=== PATIENT | female | born 1980 | race Caucasian/White ===

== ENCOUNTER 2019-12-06 11:58 | Outpatient (CLI) | payer OTHER, SELFPAY ==
--- NOTE | ~2019-12-06 | XR_ITS ---
XR chest 2V DATE: 12/06/2019 12:13 INDICATION: Cough. Contact with sick parents from [facility] TECHNIQUE: PA and lateral views COMPARISON: None FINDINGS: Normal heart size. No hilar or mediastinal enlargement. No pulmonary infiltrate or consolid ation, pleural effusion or pulmonary vascular congestion or pneumothorax. Minimal thoracic and greater lumbar scoliosis. IMPRESSION: No active cardiopulmonary disease Reviewed, dictated and finalized at location B.
== END 2019-12-06 11:59 | disposition home or self-care (01) ==
PROVIDERS: PCP Family Medicine; Visit Provider Family Medicine
DX: R05 Cough (principal)
CPT/HCPCS: 71046

== ENCOUNTER 2021-05-04 12:27 | Outpatient (CLI) | payer OTHER, SELFPAY ==
[2021-05-04 19:51] LABS: Basophils Percent Auto 0.5 % (0.2-1.2); Eosinophils Absolute Auto 0.1 K/mm3 (0-0.3); Eosinophils Percent Auto 0.9 % (0-4.4); Hematocrit 40.9 % (37.0-47.0); Hemoglobin 13.8 g/dL (12.0-15.0); Immature Granulocyte Absolute 0.02 K/mm3 (0.00-0.031); Immature Granulocyte Percent A 0.3 % (0-0.5); Lymphocytes Percent Auto 39.8 % (18.3-44.2); Mean Corpuscular HGB Conc 33.7 g/dl (32-36); Mean Corpuscular Volume 88.9 fl (80-100); Mean Platelet Volume 9.9 fl (7.4-10.4); Monocytes Absolute Auto 0.4 K/mm3 (0.1-0.6); Monocytes Percent Auto 5.3 % (2.6-8.5); Neutrophils Absolute Auto 4.2 K/mm3 (1.3-6.7); Neutrophils Percent Auto 53.2 % (45.5-73.1); Platelet Count Result 341 k/mm3 (150-375); Red Cell Distribution Width 13.2 % (11.5-14.5); White Blood Count 7.8 K/mm3 (4.5-10.0)
[2021-05-04 19:58] LABS: Add Urine Microscopic? YES; Appearance Urine Clear (Clear); Bilirubin Urine Negative (Negative); Blood Urine Negative (Negative); Color Urine Straw (Yellow); Glucose Urine UA Negative (Negative); Ketones Urine Negative (Negative); Leukocyte Esterase Ur Trace LEU/UL (Negative); Nitrate Urine Negative (Negative); Protein Urine Negative (Negative); RBC Urine 0-2 /hpf (0-2); Specific Grav Ur 1.006 (1.001-1.035); Squamous Epithelial Cell Urine Rare /hpf (Few); Urobilinogen Urine Negative mg/dL (<2.0); WBC Urine 0-3 /hpf
[2021-05-04 20:31] LABS: Alanine Aminotransferase 22 U/L (4-35); Albumin Level 4.7 g/dL (3.5-5.1); Alkaline Phosphatase 88 U/L (38-126); Anion Gap 6 mmol/L (8-16); Aspartate Amino Transferase 21 U/L (14-36); Bilirubin,Total 0.7 mg/dL (0.2-1.3); Blood Urea Nitrogen 10 mg/dL (7-17); Calcium 9.8 mg/dL (8.4-10.2); Carbon Dioxide 27 mmol/L (22-30); Chloride 106 mmol/L (98-107); Cholesterol 231 mg/dL (0-200); Estimated Glomerular Filt Rate > 60; Glucose 93 mg/dL (65-110); HDL Direct 81 mg/dL; Potassium 3.7 mmol/L (3.4-5.0); Sodium 139 mmol/L (137-145); Triglycerides 98 mg/dL (<150)
[2021-05-04 20:38] LABS: Vitamin D 25 Hydroxy 48.4 ng/mL
[2021-05-04 20:42] LABS: LDL Cholesterol Direct 105 mg/dL
[2021-05-04 21:02] LABS: Thyroid Stimulating Hormone 0.605 uIU/mL (0.465-4.680)
[2021-05-04 21:36] LABS: Folic Acid 9.3 ng/mL (2.76->20)
== END 2021-05-04 12:28 | disposition home or self-care (01) ==
LOC: ANHBWCLAB 12:29
PROVIDERS: PCP Family Medicine; Visit Provider Family Medicine
DX: Z00.00 Encounter for general adult medical examination without abnormal findings (principal); G43.909 Migraine, unspecified, not intractable, without status migrainosus; Z79.899 Other long term (current) drug therapy; R79.89 Other specified abnormal findings of blood chemistry; Z13.9 Encounter for screening, unspecified
CPT/HCPCS: 36415; 80053; 80061; 81001; 82306; 82607; 82746; 84443; 85025

== ENCOUNTER 2021-10-12 10:13 | Outpatient (CLI) | payer OTHER, SELFPAY ==
[2021-10-12 20:14] LABS: Hematocrit 40.2 % (37.0-47.0); Hemoglobin 13.5 g/dL (12.0-15.0); Mean Corpuscular HGB Conc 33.6 g/dl (32-36); Mean Corpuscular Hemoglobin 30.5 pg (26-34); Mean Corpuscular Volume 90.7 fl (80-100); Mean Platelet Volume 9.4 fl (7.4-10.4); Platelet Count Result 402 k/mm3 (150-375); Red Blood Count 4.43 M/mm3 (4.2-5.4); Red Cell Distribution Width 12.5 % (11.5-14.5); White Blood Count 6.9 K/mm3 (4.5-10.0)
[2021-10-12 20:58] LABS: Thyroid Stimulating Hormone 0.719 uIU/mL (0.465-4.680)
[2021-10-12 22:19] LABS: Free T4 Free Thyroxine 0.91 ng/mL (0.78-2.19); Vitamin D 25 Hydroxy 35.2 ng/mL
== END 2021-10-12 10:14 | disposition home or self-care (01) ==
LOC: ANHBWCLAB 10:16
PROVIDERS: PCP Family Medicine; Visit Provider Nurse Practitioner
DX: R53.83 Other fatigue (principal); E55.9 Vitamin D deficiency, unspecified
CPT/HCPCS: 36415; 82306; 82607; 84439; 84443; 85027

== ENCOUNTER 2021-11-09 14:03 | Outpatient (CLI) | payer OTHER, SELFPAY ==
[2021-11-09 20:07] LABS: Hematocrit 39.2 % (37.0-47.0); Hemoglobin 13.3 g/dL (12.0-15.0); Mean Corpuscular HGB Conc 33.9 g/dl (32-36); Mean Corpuscular Hemoglobin 30.2 pg (26-34); Mean Corpuscular Volume 89.1 fl (80-100); Mean Platelet Volume 9.8 fl (7.4-10.4); Platelet Count Result 307 k/mm3 (150-375); Red Cell Distribution Width 13.2 % (11.5-14.5); White Blood Count 6.3 K/mm3 (4.5-10.0)
== END 2021-11-09 14:04 | disposition home or self-care (01) ==
LOC: ANHBWCLAB 14:05
PROVIDERS: PCP Family Medicine; Visit Provider Obstetrics & Gynecology Gynecology
DX: R79.9 Abnormal finding of blood chemistry, unspecified (principal)
CPT/HCPCS: 36415; 85027

== ENCOUNTER 2022-04-27 15:37 | Outpatient (CLI) | payer OTHER, SELFPAY ==
--- NOTE | ~2022-04-27 | US_ITS ---
EXAMINATION: US OB <=14 wk fetus w TV INDICATION: SPOTTING IN FIRST TRIMESTER . LMP 02/27/2022. IGNACIO by LMP 12/04/2022. GA by LMP 8 weeks 3 da ys. TECHNIQUE: Sonography of the pelvis was performed by transabdominal and transvaginal techniques. COMPARISON: 06/13/2009 RESULT: Uterus: - Orientation: Anteverted - Size: 9.9 x 5.5 x 6.2 cm - Myometrium: Homogeneous echogenicity . Gestation: - Intrauterine gestational sac: Single present - Mean Sac Diameter: cm, corresponding gestational age week days - Yolk sac: cm - Embryo: - Alvarado rump length: 1.1 cm, corresponding gestational age 7 weeks, 1 days. IGNACIO by ultrasound 12/13/2022. -Gestational heart rate: Absent. -Subgestational hematoma: Absent. Right ovary: - Size : Not visualized. Left ovary: - Size: 2.9 x 2.5 x 2.6 cm - Normal sonographic appearance with physiologic follicles. 2.3 cm simple cyst. Pelvis free fluid: None. IMPRESSION: Ultrasound findings of failure (CRL greater than 7 mm with no heart motion). Reviewed, dictated and finalized at location K. IMPRESSION: Ultrasound findings of failure (CRL greater than 7 mm with no h eart motion).
== END 2022-04-27 15:38 | disposition home or self-care (01) ==
PROVIDERS: PCP Family Medicine; Visit Provider Obstetrics & Gynecology Gynecology
DX: O26.851 Spotting complicating pregnancy, first trimester (principal); O02.1 Missed abortion
CPT/HCPCS: 76801; 76817

== ENCOUNTER 2022-04-30 10:57 | Outpatient (CLI) | payer OTHER, SELFPAY | END 2022-04-30 10:58 | disposition home or self-care (01) | LOC: ANHBWCLAB 10:59 | PROVIDERS: PCP Family Medicine; Visit Provider Obstetrics & Gynecology Gynecology | DX: O03.9 Complete or unspecified spontaneous abortion without complication (principal) | CPT/HCPCS: 36415; 84702 ==

== ENCOUNTER 2022-05-04 13:06 | Outpatient (CLI) | payer OTHER, SELFPAY ==
--- NOTE | ~2022-05-04 | US_ITS ---
EXAMINATION: US OB <= 14 weeks fetus DATE: 05/04/2022 14:01 INDICATION: Threatened , less than 20 weeks TECHNIQUE: Real-time pelvic transabdominal and transvaginal ultrasound was performed. COMPARISON: 04/27/2022 FINDINGS: The uterus measures 10.4 x 5.3 x 7.0 cm. There is an intrauterine gestational sac. No yolk sac is identified. There is noted cardiac motion. The crown rump length measures 11 mm, which correlates with an estimated gestational age of 7 weeks and 2 day(s) (+/-) 4 day(s). The ovaries are not visualized however no adnexal abnormality is seen. There is no free fluid in the pelvis. IMPRESSION: 1. demise. Reviewed, dictated and finalized at location A. IMPRESSION: 1. demise.
== END 2022-05-04 13:07 | disposition home or self-care (01) ==
PROVIDERS: PCP Family Medicine; Visit Provider Obstetrics & Gynecology Gynecology
DX: O02.1 Missed abortion (principal)
CPT/HCPCS: 76801

== ENCOUNTER 2022-05-07 10:10 | Outpatient (CLI) | payer OTHER, SELFPAY | END 2022-05-07 10:11 | disposition home or self-care (01) | LOC: ANHBWCLAB 10:12 | PROVIDERS: PCP Family Medicine; Visit Provider Obstetrics & Gynecology Gynecology | DX: O03.9 Complete or unspecified spontaneous abortion without complication (principal) | CPT/HCPCS: 36415; 84702 ==

== ENCOUNTER 2022-05-14 08:41 | Outpatient (CLI) | payer OTHER, SELFPAY | END 2022-05-14 08:42 | disposition home or self-care (01) | LOC: ANHBWCLAB 08:43 | PROVIDERS: PCP Family Medicine; Visit Provider Obstetrics & Gynecology Gynecology | DX: O03.9 Complete or unspecified spontaneous abortion without complication (principal); Z3A.00 Weeks of gestation of pregnancy not specified | CPT/HCPCS: 36415; 84702 ==

== ENCOUNTER 2022-05-20 08:47 | Outpatient (CLI) | payer OTHER, SELFPAY ==
[2022-05-20 19:47] LABS: Beta HCG Quantitative 25.14 mIU/ML
== END 2022-05-20 08:48 | disposition home or self-care (01) ==
PROVIDERS: PCP Family Medicine; Visit Provider Obstetrics & Gynecology Gynecology
DX: O03.9 Complete or unspecified spontaneous abortion without complication (principal)
CPT/HCPCS: 36415; 84702

== ENCOUNTER 2022-05-28 13:30 | Outpatient (CLI) | payer OTHER, SELFPAY ==
[2022-05-28 18:56] LABS: Beta HCG Quantitative 4.76 mIU/ML
== END 2022-05-28 13:31 | disposition home or self-care (01) ==
PROVIDERS: PCP Family Medicine; Visit Provider Obstetrics & Gynecology Gynecology
DX: O03.9 Complete or unspecified spontaneous abortion without complication (principal); Z3A.00 Weeks of gestation of pregnancy not specified
CPT/HCPCS: 36415; 84702

== ENCOUNTER 2022-09-27 10:00 | Outpatient (CLI) | payer OTHER, SELFPAY ==
[2022-09-27 21:31] LABS: Alanine Aminotransferase 23 U/L (6-35); Albumin Level 4.8 g/dL (3.5-5.1); Alkaline Phosphatase 82 U/L (38-126); Anion Gap 6 mmol/L (8-16); Aspartate Amino Transferase 31 U/L (14-36); Bilirubin,Total 0.7 mg/dL (0.2-1.3); Blood Urea Nitrogen 13 mg/dL (7-17); Calcium 9.1 mg/dL (8.4-10.2); Carbon Dioxide 28 mmol/L (22-30); Chloride 103 mmol/L (98-107); Cholesterol 237 mg/dL (0-200); Estimated Glomerular Filt Rate > 60; Glucose 78 mg/dL (65-110); HDL Direct 69 mg/dL; Hematocrit 40.6 % (37.0-47.0); Hemoglobin 13.3 g/dL (12.0-15.0); Mean Corpuscular HGB Conc 32.8 g/dl (32-36); Mean Corpuscular Hemoglobin 29.4 pg (26-34); Mean Corpuscular Volume 89.6 fl (80-100); Mean Platelet Volume 9.9 fl (7.4-10.4); Platelet Count Result 346 k/mm3 (150-375); Potassium 3.9 mmol/L (3.4-5.0); Red Blood Count 4.53 M/mm3 (4.2-5.4); Red Cell Distribution Width 13.4 % (11.5-14.5); Sodium 137 mmol/L (137-145); Triglycerides 88 mg/dL (<150); White Blood Count 6.3 K/mm3 (4.5-10.0)
[2022-09-27 21:39] LABS: Vitamin D 25 Hydroxy 36.6 ng/mL
[2022-09-27 21:42] LABS: LDL Cholesterol Direct 104 mg/dL
== END 2022-09-27 10:01 | disposition home or self-care (01) ==
PROVIDERS: PCP Family Medicine; Visit Provider Family Medicine
DX: R79.89 Other specified abnormal findings of blood chemistry (principal); G43.909 Migraine, unspecified, not intractable, without status migrainosus; Z00.00 Encounter for general adult medical examination without abnormal findings
CPT/HCPCS: 36415; 80053; 80061; 82306; 85027

== ENCOUNTER 2023-09-08 16:01 | Outpatient (CLI) | payer OTHER, SELFPAY ==
--- NOTE | ~2023-09-08 | MM_ITS ---
EXAMINATION: MM screening aisha BI w glo HISTORY: Screening mammogram TECHNIQUE: Craniocaudal and mediolateral oblique 3-D tomosynthesis images were obtained and synthetic 2-D images were generated. Bilateral rotated lateral CC views. CAD analysis was submitted and interp reted. COMPARISON: No prior mammogram is available for comparison at this institution. BREAST PARENCHYMAL COMPOSITION: The breasts are heterogeneously dense, which may obscure small masses . FINDINGS: There is no evidence of suspicious mass, calcification, or architectural distortion to sugg est malignancy in either breast. There has been no suspicious interval change. IMPRESSION: 1. No mammographic evidence of malignancy. 2. Recommend routine screening mammography in one year. BI-RADS Category 1: Negative Reviewed, dictated and finalized at location A. N SALES REPRESENTATIVE
== END 2023-09-08 16:02 | disposition home or self-care (01) ==
PROVIDERS: PCP Family Medicine; Visit Provider Obstetrics & Gynecology Gynecology
DX: Z12.31 Encounter for screening mammogram for malignant neoplasm of breast (principal)
CPT/HCPCS: 77063; 77067

== ENCOUNTER 2023-10-17 06:40 | Outpatient (CLI) | payer OTHER, SELFPAY ==
[2023-10-17 19:01] LABS: Alanine Aminotransferase 17 U/L (6-35); Albumin Level 3.8 g/dL (3.5-5.1); Alkaline Phosphatase 67 U/L (38-126); Anion Gap 5 mmol/L (8-16); Aspartate Amino Transferase 58 U/L (14-36); Bilirubin,Total 0.5 mg/dL (0.2-1.3); Blood Urea Nitrogen 11 mg/dL (7-17); Calcium 9.2 mg/dL (8.4-10.2); Carbon Dioxide 25 mmol/L (22-30); Chloride 106 mmol/L (98-107); Cholesterol 212 mg/dL (0-200); Estimated Glomerular Filt Rate > 60; Glucose 78 mg/dL (65-110); HDL Direct 60 mg/dL; Potassium 4.1 mmol/L (3.4-5.0); Sodium 136 mmol/L (137-145); Triglycerides 123 mg/dL (<150)
[2023-10-17 19:26] LABS: LDL Cholesterol Direct 118 mg/dL
[2023-10-17 19:33] LABS: Hematocrit 39.6 % (37.0-47.0); Hemoglobin 12.7 g/dL (12.0-15.0); Mean Corpuscular HGB Conc 32.1 g/dl (32-36); Mean Corpuscular Hemoglobin 30.1 pg (26-34); Mean Corpuscular Volume 93.8 fl (80-100); Mean Platelet Volume 9.9 fl (7.4-10.4); Platelet Count Result 340 k/mm3 (150-375); Red Blood Count 4.22 M/mm3 (4.2-5.4); Red Cell Distribution Width 13.3 % (11.5-14.5); White Blood Count 7.2 K/mm3 (4.5-10.0)
[2023-10-19 12:28] LABS: NIL 0.02 IU/mL; Quantiferon TB Plus, 1T NEGATIVE (NEGATIVE); TB1-NIL 0.02 IU/mL; TB2-NIL 0.04 IU/mL
== END 2023-10-17 06:41 | disposition home or self-care (01) ==
LOC: ANHBWCLAB 06:46
PROVIDERS: PCP Nurse Practitioner Adult Health; Visit Provider Nurse Practitioner Adult Health
DX: Z13.9 Encounter for screening, unspecified (principal)
CPT/HCPCS: 36415; 80053; 80061; 82306; 84443; 85027; 86480

== ENCOUNTER 2023-10-31 21:31 | Emergency (ER) | payer OTHER, SELFPAY ==
--- NOTE | 2023-10-31 21:34 | ECG_ITS ---
Measurements Intervals [place] Rate: 60 P: 40 GA: 187 QRS: 53 QRSD: 83 T: 48 QT: 373 QTc: 374 Interpretive Statements SINUS RHYTHM NO PREVIOUS ECG AVAILABLE FOR COMPARISON Electronically Signed On 11-01-2023 14:58:35 [employer] by Jose Edwards M.D.
[2023-10-31 21:41] VITALS: BP 148/73; PULSE 70; RESP 16; TEMP 36.5; O2SAT 100
--- NOTE | 2023-10-31 22:37 | PC.NURSE ---
Pt ambulated to desk and stated she was going to leave ED. Pt was encouraged to stay and be seen by a physician by this RN. Pt states she understood the risks of leaving and ambulated out of the ED.
== END 2023-10-31 22:26 | disposition left against medical advice (07) ==
PROVIDERS: Emergency Provider Emergency Medicine; PCP Nurse Practitioner Adult Health
DX: M79.602 Pain in left arm (principal)
CPT/HCPCS: 93005; 99199

== ENCOUNTER 2024-03-09 05:24 | Emergency (ER) | payer OTHER, SELFPAY ==
[2024-03-09 05:50] VITALS: BP 114/77; PULSE 67; RESP 18; TEMP 36.4; O2SAT 100
[2024-03-09] MEDS: PROCHLORPERAZINE EDISYLATE 10 MG/2 ML VIAL 5 MG IV PUSH (06:07)
[2024-03-09] MEDS: SODIUM CHLORIDE 0.9% IV 500 ML 999 ML IV CONT (06:07)
[2024-03-09] MEDS: KETOROLAC 30 MG/ML VIAL (*BKC) IV PUSH (06:08)
[2024-03-09] MEDS: diphenhydrAMINE HCl INJ 50 MG/ML VIAL 25 MG IV PUSH (06:08)
--- NOTE | 2024-03-09 06:49 | ED.HA ---
HPI - Headache General Chief Complaint: Headache Stated Complaint: headache Time Seen by Provider: 03/09/24 05:43 Source: patient Mode of arrival: ambulatory Limitations: no limitations History of Present Illness HPI Narrative: 43-year-old with a history of migraine headache here with a complaint of having. Headache since this morning it has been states that she has taken UT pain medication with no relief. She also complains of nausea. No history of fever or chills. MD elicited complaint: migraine Pertinent past history: other (Recurrent migraine) Onset (ago): hour(s) (4) Onset description: gradually Location: right Severity: similar to previous episodes Quality & Timing: aching and throbbing Exacerbating factors: none Relieving factors: nothing Context: occurred at rest Associated symptoms: nausea Treatments prior to arrival: migraine medication Related Data Home Medications Medication Instructions Recorded Confirmed sumatriptan succinate 100 mg tablet See Rx Instructions PO .COMPLEX PRN 09/21/23 09/21/23 Allergies Allergy/AdvReac Type Severity Reaction Status Date / Time codeine Allergy Mild Dizziness Verified 03/09/24 05:53 Review of Systems Review of Systems: All systems reviewed & are unremarkable except as noted in HPI and below Constitutional: Constitutional: Reports no additional constitutional complaints Eyes: Eyes: Reports no additional eye complaints ENT: Reports system reviewed and no additional complaints, except as documented Respiratory: Respiratory: Reports no additional respiratory complaints Gastrointestinal: Gastrointestinal: Reports nausea Musculoskeletal: Musculoskeletal: Reports no additional musculoskeletal complaints Integumentary/Breasts: Skin/Breast: Reports system reviewed and no additional complaints, except as docu Neurologic: Reports as per HPI Endocrine: Endocrine: Reports no additional endocrine complaints [facility] Past Medical History Medical History (Updated 03/09/24 @ 06:53 by Vaughn Cary MD) Headache, migraine Low serum vitamin D Family History Family History Mother COPD (chronic obstructive pulmonary disease) Rheumatoid aortitis Father Cancer of kidney Grandparent Heart attack Emphysema, unspecified Sibling Migraine Social History Social History Smoking status: Never smoker Alcohol intake: never Substance use: never Substance use type: does not use Lack of Transportation: No Lack of Food: Never True Current Housing: I Have Housing Concerned About Future Housing: No Difficulty Paying Gas/Electric Bills: No Difficulty Paying for Meds: No Currently Unemployed: No Education: High School Diploma/GED Difficulty w/ Childcare or Family Care: No Living arrangements: with family Gender identity (if verbalized by the patient): Female Spiritual care concerns: No Exam Narrative: GENERAL: Well-appearing, well-nourished, and in no acute distress. HEAD: Normocephalic, atraumatic. EYES: PERRLA and EOMI. ENT: Nares clear, no rhinorrhea or epistaxis. Mucous membranes moist. NECK: Supple. CHEST: Clear to auscultation. No respiratory distress. HEART: Regular rate and rhythm. No murmur heard. Normal peripheral pulses. ABDOMEN: Soft, nontender, nondistended, normal active bowel sounds. EXTREMITIES: Normal range of motion. No edema. SKIN: Warm, dry, no rash. NEURO: No focal deficits. Alert and oriented x3. PSYCH: Normal mood and affect. Course Reevaluation(s) Reevaluation #1: Patient feeling better headache resolved. Feeling sleepy at this time Time: 06:52 Reevaluation #2: Feeling better feels comfortable going home. I advised her to continue home medications Time: 07:04 Vital Signs Vital signs: Vital Signs Temperature 36.4 C 03/09/24 05:50 Pulse Rate 67
[2024-03-09 06:55] VITALS: BP 102/79; PULSE 57; RESP 13; O2SAT 100
[2024-03-09 07:13] VITALS: BP 107/72; PULSE 75; RESP 15; TEMP 36.4; O2SAT 98
== END 2024-03-09 07:14 | disposition home or self-care (01) ==
PROVIDERS: Emergency Provider Family Medicine; PCP Nurse Practitioner Adult Health
DX: G43.919 Migraine, unspecified, intractable, without status migrainosus (principal); Z79.899 Other long term (current) drug therapy
CPT/HCPCS: 96361; 96374; 96375; 99284; J0780; J1200; J1885; J7040

== ENCOUNTER 2024-09-26 08:32 | Outpatient (CLI) | payer OTHER, SELFPAY ==
[2024-09-26 19:18] LABS: Hematocrit 45.4 % (37.0-47.0); Hemoglobin 14.4 g/dL (12.0-15.0); Mean Corpuscular HGB Conc 31.7 g/dl (32-36); Mean Corpuscular Hemoglobin 29.8 pg (26-34); Mean Platelet Volume 9.8 fl (7.4-10.4); Platelet Count Result 365 k/mm3 (150-375); Red Blood Count 4.83 M/mm3 (4.2-5.4); Red Cell Distribution Width 12.9 % (11.5-14.5)
[2024-09-26 20:02] LABS: Free T4 Free Thyroxine 0.94 ng/dL (0.78-2.19)
[2024-09-26 20:31] LABS: Alanine Aminotransferase 31 U/L (6-35); Albumin Level 4.5 g/dL (3.5-5.1); Alkaline Phosphatase 73 U/L (38-126); Anion Gap 5 mmol/L (4-12); Aspartate Amino Transferase 36 U/L (14-36); Bilirubin,Total 0.9 mg/dL (0.2-1.3); Blood Urea Nitrogen 13 mg/dL (7-17); Calcium 9.5 mg/dL (8.4-10.2); Carbon Dioxide 29 mmol/L (22-30); Chloride 102 mmol/L (98-107); Cholesterol 276 mg/dL (0-200); Estimated Glomerular Filt Rate > 60; Glucose 80 mg/dL (65-110); HDL Direct 84 mg/dL; Potassium 4.5 mmol/L (3.4-5.0); Sodium 136 mmol/L (137-145); Triglycerides 108 mg/dL (<150)
[2024-09-26 20:43] LABS: LDL Cholesterol Direct 151 mg/dL
[2024-09-26 21:35] LABS: Folic Acid > 20.0 ng/mL (2.76->20)
[2024-09-28 08:58] LABS: Thyroid Peroxidase Antibodies 11 IU/mL (<9)
== END 2024-09-26 08:33 | disposition home or self-care (01) ==
LOC: ANHBWCLAB 08:33
PROVIDERS: PCP Nurse Practitioner Adult Health; Visit Provider Nurse Practitioner Adult Health
DX: R53.83 Other fatigue (principal); Z13.9 Encounter for screening, unspecified
CPT/HCPCS: 36415; 80053; 80061; 82306; 82607; 82746; 84439; 84443; 85027; 86376

== ENCOUNTER 2024-11-01 07:20 | Outpatient (CLI) | payer OTHER, SELFPAY ==
--- NOTE | ~2024-11-01 | MM_ITS ---
EXAMINATION: MM screening aisha BI w glo HISTORY: Screening TECHNIQUE: Craniocaudal and mediolateral oblique 3-D tomosynthesis images were obtained and synthetic 2-D images were generated. CAD analysis was submitted and interpreted. COMPARISON: 09/08/2023 BREAST PARENCHYMAL COMPOSITION: Dense: The breasts are extremely dense, which lowers the sensitivity of mammography. FINDINGS: There is no evidence of suspicious mass, calcification, or architectural distortion to sugg est malignancy in either breast. There has been no suspicious interval change. IMPRESSION: 1. No mammographic evidence of malignancy. 2. Recommend routine screening mammography in one year. BI-RADS Category 1: Negative Reviewed, dictated and finalized at location B. TARIAN INSPECTOR
== END 2024-11-01 07:21 | disposition home or self-care (01) ==
PROVIDERS: PCP Nurse Practitioner Adult Health; Visit Provider Obstetrics & Gynecology Gynecology
DX: Z12.31 Encounter for screening mammogram for malignant neoplasm of breast (principal)
CPT/HCPCS: 77063; 77067

== ENCOUNTER 2025-03-09 17:37 | Observation (INO) | payer OTHER, SELFPAY ==
--- NOTE | ~2025-03-09 | CT_ITS ---
Procedure: CT LE LT w con Ordering provider: Preethi Teague PA-C History: . cellulitis, spider bite . Comparison: None. Technique: Thin slice axial CT of the No IV contrast was given. Sagittal and coronal reformatted imag es were also obtained and reviewed. Findings: BONES: No bone abnormality demonstrated with no fracture or osteomyelitis.. JOINT SPACES: Normal. SOFT TISSUES: Fat stranding is seen anteriorly in the upper thigh with soft tissue density which mickey ure 1.2 cm. Fat stranding also seen posteriorly and medially in the lower thigh. These changes may represent cellulitis. No evidence of abscess formation seen. No evidence of inguina l lymphadenopathy is seen. IMPRESSION: No definite bone abnormality seen. Highly suggestive cellulitis seen anteriorly in the upper thigh and posteriorly and medially in the l ower thigh. Reviewed, dictated and finalized at location A. IMPRESSION: No definite bone abnormality seen. Highly suggestive cellulitis seen anteriorly in the upper thigh and posteriorly and medially in the lower thigh.
[2025-03-09 17:39] VITALS: BP 152/86; PULSE 99; RESP 18; TEMP 36.6; O2SAT 100
--- NOTE | 2025-03-09 18:52 | ED_ITS ---
HPI - Skin/Abscess/Foreign Bdy General Chief complaint: Skin/Abscess/Foreign Body Stated complaint: spider bite Time Seen by Provider: 03/09/25 18:24 Source: patient Mode of arrival: ambulatory Limitations: no limitations History of Present Illness HPI narrative: This is a 44-year-old female that presents to the emergency department after a spider bite 3 days ago. Reports she was seen at another ER. Started on doxycycline. She has been taking this with continued worsening symptoms. Reports increasing redness. Also reports she has had increasing blistering, purple discoloration. Presents for further evaluation. Denies fevers. Related Data Allergies Allergy/AdvReac Type Severity Reaction Status Date / Time codeine Allergy Mild Dizziness Verified 03/09/25 19:05 morphine AdvReac Intermediate Unconscious Verified 03/09/25 19:05 Review of Systems 2 Review of Systems: All systems reviewed & are unremarkable except as noted in HPI and below PMFSH Past Medical History Medical History (Updated 03/10/25 @ 00:05 by Preethi Teague PA-C) Low serum vitamin D Headache, migraine Family History Family History Mother COPD (chronic obstructive pulmonary disease) Rheumatoid aortitis Father Cancer of kidney Grandparent Heart attack Emphysema, unspecified Sibling Migraine Social History Social History Smoking status: Never smoker Alcohol intake: never Substance use: never Substance use type: does not use Lack of Transportation: No Lack of Food: Never True Current Housing: I Have Housing Concerned About Future Housing: No Difficulty Paying Gas/Electric Bills: No Difficulty Paying for Meds: No Currently Unemployed: No Education: High School Diploma/GED Difficulty w/ Childcare or Family Care: No Living arrangements: with family Gender identity (if verbalized by the patient): Female Spiritual care concerns: No Exam 2 Narrative: GENERAL: Well-appearing, well-nourished, and in no acute distress. HEAD: Normocephalic, atraumatic. EYES: EOMI. CHEST: Clear to auscultation. No respiratory distress. No wheezes rales or rhonchi HEART: Regular rate and rhythm. No murmur heard. Normal peripheral pulses. EXTREMITIES: Normal range of motion. No edema. Large area of redness to the left anterior thigh with central area of purple discoloration with overlying blister. No lymphangitic streaking SKIN: Warm, dry, no rash. NEURO: No focal deficits. Alert and oriented x3. PSYCH: Normal mood and affect Course Course Emergency Course: Patient updated on her workup and recommendation for admission Consultations Consultation #1: Spoke with hospitalist about patient and workup who accepts admission. Date: 03/09/25 Vital Signs Vital signs: Vital Signs Temperature 97.9 F 03/09/25 17:39 Pulse Rate 99 03/09/25 17:39 Respiratory Rate 18 03/09/25 17:39 Blood Pressure 152/86 H 03/09/25 17:39 Pulse Oximetry 100 03/09/25 17:39 Oxygen Delivery Room Air 03/09/25 17:39 Temperature 98.3 F 03/09/25 19:06 Pulse Rate 81 03/09/25 23:29 Respiratory Rate 17 03/09/25 23:29 Blood Pressure 121/77 03/09/25 23:29 Pulse Oximetry 99 03/09/25 23:29 Oxygen Delivery Room Air 03/09/25 19:06 MDM - Skin/Abscess/Foreign Bdy MDM Narrative Medical decision making narrative: Patient presents to the emergency department for worsening cellulitis following a spider bite. She is afebrile nontoxic appearing. Her vitals are stable. Cbc without leukocytosis. CRP is elevated, ESR is normal. CT left lower extremity shows cellulitis, no evidence for abscess. Patient has been on oral doxycycline with continued worsening of her symptoms. Will be admitted for further IV antibiotics. Spoke with hospitalist about patient and workup who accepts admission. Will place consult for General surgery to evaluate wound Differential Diagnosis Differential diagnosis: Likely abscess of skin or subcutaneous tissue and cellulitis Lab Data Attestation: I reviewed the patient's lab results. 03/09/25 19:12 03/09/25 19:12 Labs: Lab Results 03/09/25 03/09/25 Range/Units 19:12 22:08 WBC 6.6 (4.5-10.0) K/mm3 RBC 4.08 L (4.2-5.4) M/mm3 Hgb 12.3 (12.0-15.0) g/dL Hct 36.7 L (37.0-47.0) % MCV 90.0 (80-100) fl MCH 30.1 (26-34) pg MCHC 33.5 (32-36) g/dl RDW 13.1 (11.5-14.5) % Plt Count 307 (150-375) k/mm3 MPV 9.4 (7.4-10.4) fl Immature Gran % (Auto) 0.3 (0-0.5) % Neut % (Auto) 61.9 (45.5-73.1) % Lymph % (Auto) 28.5 (18.3-44.2) % [place] % (Auto) 5.8 (2.6-8.5) % Eos % (Auto) 3.2 (0-4.4) % Baso % (Auto) 0.3 (0.2-1.2) % Lymph # (Auto) 1.87 (0.9-3.2) K/mm3 [place] # (Auto) 0.4 (0.1-0.6) K/mm3 Eos # (Auto) 0.2 (0-0.3) K/mm3 Baso # (Auto) 0.0 (0.0-0.1) K/mm3 Abs Immat Gran (auto) 0.02 (0.00-0.031) K/mm3 Absolute Neuts (auto) 4.1 (1.3-6.7) K/mm3 Absolute Nucleated RBC 0.000 (0.0-0.012) K/mm3 Nucleated RBC % 0.0 (0.0-0.2) % ESR 19 (0-20) mm/hr Sodium 139 (137-145) mmol/L Potassium 3.7 (3.4-5.0) mmol/L Chloride 107 (98-107) mmol/L Carbon Dioxide 24 (22-30) mmol/L Anion Gap 8 (4-12) mmol/L BUN 11 (7-17) mg/dL Creatinine 0.55 L (0.7-1.0) mg/dL Estim Creat Clear Calc 105 ml/min Estimated GFR > 60 (59 - ) Glucose 97 (65-110) mg/dL Lactic Acid 1.0 (0.7-2.0) mmol/L Calcium 9.1 (8.4-10.2) mg/dL Total Bilirubin 0.3 (0.2-1.3) mg/dL AST 33 (14-36) U/L ALT 32 (6-35) U/L Alkaline Phosphatase 80 (38-126) U/L C-Reactive Protein 2.3 H (<1.0) mg/dL Total Protein 7.1 (6.3-8.2) g/dL Albumin 4.0 (3.5-5.1) g/dL POC Urine HCG, Qual Negative (Negative) Imaging Data Radiologist's impression: ITS Impressions Lower Extremity CT 03/09/25 21:33 IMPRESSION: No definite bone abnormality seen. Highly suggestive cellulitis seen anteriorly in the upper thigh and posteriorly and medially in the lower thigh. Critical Care Time Critical Care Time Critical Care Time: No Discharge Plan Discharge Clinical Impression: Cellulitis Qualifiers: Site of cellulitis: extremity Site of cellulitis of extremity: lower extremity Laterality: left Qualified Code(s): L03.116 - Cellulitis of left lower limb Patient Disposition: Still a Patient Condition: Stable Patient Language: American Prescriptions: No Action dextroamphetamine-amphetamine [Adderall XR] 20 mg capsule,extended release 24hr 20 mg PO DAILY Qty: 30 0RF fluoxetine 20 mg capsule 20 mg PO DAILY Qty: 90 3RF Ubrelvy 100 mg tablet See Rx Instructions .ROUTE .COMPLEX Qty: 8 3RF Dose Instruction: TAKE 1 TABLET BY MOUTH 1 TIME NEEDED FOR MIGRAINE HEADACHE. MAY REPEAT 1 TIME IN>= 2 HOURS AFTER FOR 1 DOSE NEEDED Rx Instructions: TAKE 1 TABLET BY MOUTH 1 TIME NEEDED FOR MIGRAINE HEADACHE. MAY REPEAT 1 TIME IN>= 2 HOURS AFTER FOR 1 DOSE NEEDED Follow-up/Referrals: Shae Ruiz APRN [Primary Care Provider] -
[2025-03-09 19:06] VITALS: BP 132/77; PULSE 83; RESP 16; TEMP 36.8; O2SAT 100
--- NOTE | 2025-03-09 19:17 | PC.NURSE ---
Report received from GRACE Castro. Assumed care of patient at this time.
[2025-03-09 19:19] LABS: Basophils Percent Auto 0.3 % (0.2-1.2); Eosinophils Absolute Auto 0.2 K/mm3 (0-0.3); Eosinophils Percent Auto 3.2 % (0-4.4); Hematocrit 36.7 % (37.0-47.0); Hemoglobin 12.3 g/dL (12.0-15.0); Immature Granulocyte Absolute 0.02 K/mm3 (0.00-0.031); Immature Granulocyte Percent A 0.3 % (0-0.5); Lymphocytes Absolute Auto 1.87 K/mm3 (0.9-3.2); Lymphocytes Percent Auto 28.5 % (18.3-44.2); Mean Corpuscular HGB Conc 33.5 g/dl (32-36); Mean Corpuscular Hemoglobin 30.1 pg (26-34); Mean Platelet Volume 9.4 fl (7.4-10.4); Monocytes Absolute Auto 0.4 K/mm3 (0.1-0.6); Monocytes Percent Auto 5.8 % (2.6-8.5); Neutrophils Absolute Auto 4.1 K/mm3 (1.3-6.7); Neutrophils Percent Auto 61.9 % (45.5-73.1); Platelet Count Result 307 k/mm3 (150-375); Red Blood Count 4.08 M/mm3 (4.2-5.4); Red Cell Distribution Width 13.1 % (11.5-14.5); White Blood Count 6.6 K/mm3 (4.5-10.0)
[2025-03-09 19:32] LABS: Alanine Aminotransferase 32 U/L (6-35); Alkaline Phosphatase 80 U/L (38-126); Anion Gap 8 mmol/L (4-12); Aspartate Amino Transferase 33 U/L (14-36); Bilirubin,Total 0.3 mg/dL (0.2-1.3); Blood Urea Nitrogen 11 mg/dL (7-17); CRP 2.3 mg/dL (<1.0); Calcium 9.1 mg/dL (8.4-10.2); Carbon Dioxide 24 mmol/L (22-30); Chloride 107 mmol/L (98-107); Estimated CRCL calculation 105 ml/min; Estimated Glomerular Filt Rate > 60; Glucose 97 mg/dL (65-110); Potassium 3.7 mmol/L (3.4-5.0); Sodium 139 mmol/L (137-145); Total Protein 7.1 g/dL (6.3-8.2)
[2025-03-09 19:58] LABS: Erythrocyte Sedimentation Rate 19 mm/hr (0-20)
[2025-03-09] MEDS: VANCOMYCIN 1,500 MG/NS 500 ML 1,500 MG/500 ML BAG 250 MG IVPB (21:12)
[2025-03-09 22:09] VITALS: BP 128/79; PULSE 83; RESP 18; O2SAT 99
[2025-03-09 22:10] LABS: BEDSIDEPREGUCG Negative (Negative)
--- NOTE | 2025-03-09 22:30 | PC.NURSE ---
Patient calls this RN into room, and states I feel like my head is itchy. Patient denies any sob, or cp. No rash or hives noted. PA notified, and orders placed.
[2025-03-09] MEDS: diphenhydrAMINE HCl INJ 50 MG/ML VIAL 25 MG IV PUSH (22:33)
--- NOTE | 2025-03-09 22:51 | PC.NURSE ---
Patient states her itching has been relieved after benadryl administration. Patient ambulating to the bathroom with a steady gait with her by her side.
[2025-03-09 23:29] VITALS: BP 121/77; PULSE 81; RESP 17; O2SAT 99
[2025-03-10] VITALS (8 sets, daily range): BP systolic 107–135; BP diastolic 67–81; PULSE 69–90; RESP 16–18; TEMP 36.6–37.1; O2SAT 98–100; BMI 30.1
[2025-03-10] MEDS: KETOROLAC 30 MG/ML VIAL (*BKC) IV PUSH (01:58)
--- NOTE | 2025-03-10 07:07 | P.HP_ITS ---
H&P: HPI History of Present Illness Date/Time: 03/10/25 07:07 Chief Complaint: Skin/Abscess/Foreign Body Narrative: Domonique Santos is a 44-year-old female with a past medical history of low serum vitamin-D and headaches presents with swelling and erythema to the medial upper left thigh after a spider bite which occurred on Tuesday of this week. Patient reports that it could have been a brown recluse, she was able to get a picture of the spider after a was stepped on by her son and on examination of the picture, it does appear to be a brown recluse spider. She initially went to [facility] urgent care on Tuesday and was given a prescription for doxycycline. The wound did not improve over the next 2 days in on Tuesday she went back to the same urgent care and was told to continue the antibiotic. On Tuesday she started developing facial swelling along with worsening redness and swelling to the medial upper left thigh. Once seen in the ED, IV Vancomycin was initiated and patient states that knee swelling and pain seemed to have improved since then. Denies any difficulty with ambulation, numbness or tingling. Also denies any chest pain, shortness a breath, nausea/vomiting, headaches or dizziness. In ED: 97.9F, 81HR, 17 RR, 121/77, 99% on RA Lower extremity CT: No definite bone abnormality seen. Highly suggestive cellulitis seen anteriorly in the upper thigh and posteriorly and medially in the lower thigh. Blood cultures pending General surgery consulted for cellulitis of left lower limb Review of Systems Review of Systems: All systems reviewed & are unremarkable except as noted in HPI and below PMFSH Past Medical History Medical History Low serum vitamin D Headache, migraine Family History Family History Mother COPD (chronic obstructive pulmonary disease) Rheumatoid aortitis Father Cancer of kidney Grandparent Heart attack Emphysema, unspecified Sibling Migraine Social History Social History Smoking status: Never smoker Alcohol intake: never Substance use: never Substance use type: does not use Do You Feel Safe in your Home?: Yes Lack of Transportation: No Lack of Food: Never True Current Housing: I Have Housing Concerned About Future Housing: No Difficulty Paying Gas/Electric Bills: No Difficulty Paying for Meds: No Currently Unemployed: No Education: Associate Degree Difficulty w/ Childcare or Family Care: No Living arrangements: with family Gender identity (if verbalized by the patient): Female Spiritual care concerns: No Meds Home Medications and Allergies Home Medications ?Medication ?Instructions ?Recorded ?Confirmed ?Type ubrogepant 100 mg tablet (Ubrelvy) See Rx Instructions .Route 03/04/25 03/10/25 Rx .COMPLEX #8 tabs fluoxetine 20 mg capsule 20 mg PO QPM 03/10/25 03/10/25 History norelgestromin 150 mcg-e.estradiol 1 patch transdermal .[id number] 03/10/25 03/10/25 History 35 mcg/24 hr weekly transderm patch (Xulane) Allergies Allergy/AdvReac Type Severity Reaction Status Date / Time codeine Allergy Mild Dizziness Verified 03/09/25 19:05 morphine AdvReac Intermediate Unconscious Verified 03/09/25 19:05 Vital Signs Vital Signs - 24 hr 03/09/25 17:39 03/09/25 19:06 03/09/25 22:09 Temperature 97.9 F 98.3 F Pulse Rate 99 83 83 Respiratory Rate 18 16 18 Blood Pressure 152/86 H 132/77 128/79 Pulse Oximetry 100 100 99 Oxygen Delivery Room Air Room Air 03/09/25 23:29 03/10/25 00:23 03/10/25 00:23 Temperature Pulse Rate 81 69 82 Respiratory Rate 17 17 17 Blood Pressure 121/77 107/67 107/67 Pulse Oximetry 99 99 98 Oxygen Delivery 03/10/25 01:16 03/10/25 02:06 03/10/25 06:00 Temperature 97.9 F 97.8 F Pulse Rate 90 90 72 Respiratory Rate 18 18 18 Blood Pressure 130/76 117/71 Pulse Oximetry 100 100 100 Oxygen Delivery Room Air Exam Narrative: Gen - well appearing female in no acute respiratory distress who is nontoxic- appearing lying semi recumbent in bed HEENT - normocephalic. Atraumatic. Pupils equal round and reactive. Extraocular motions intact. Sclera clear and anicteric. Nares patent. Orop harynx was clear. No oral lesions. Moist mucous membranes. Neck - neck was supple. No dominant adenopathy, thyromegaly or masses. Chest - lungs are clear to auscultation bilaterally. No wheezes or crackles. Breast exam was deferred. CV - heart was regular rate and rhythm. S1-S2. No murmurs gallops or rubs. Abd - abdomen was soft. Nontender. Nondistended. Positive bowel sounds. No organomegaly or masses. Ext - no clubbing, cyanosis or edema. 2+ DP pulses bilaterally. Neuro - patient is alert and oriented x4. Strength is 5/5 in both upper and lower extremities. Cranial nerves 2-12 are intact. Speech is clear. Psych - normal mood and affect. Patient is pleasant and cooperative. Skin -medial upper left thigh has a 3 x 3 cm area of induration/erythema, no fluctuance. 1 cm unrestricted blister with serous fluid. Borders demarcated with marker, cellulitis seems to be improving/receiving since lines were drawn. Warm and dry. No rashes noted. H&P: Results Labs Labs: Short CBC 03/09/25 Range/Units 19:12 WBC 6.6 (4.5-10.0) K/mm3 Hgb 12.3 (12.0-15.0) g/dL Hct 36.7 L (37.0-47.0) % Plt Count 307 (150-375) k/mm3 BMP 03/09/25 19:12 Sodium 139 Potassium 3.7 Chloride 107 Carbon Dioxide 24 BUN 11 Creatinine 0.55 L Glucose 97 Calcium 9.1 Liver Function 03/09/25 Range/Units 19:12 Total Bilirubin 0.3 (0.2-1.3) mg/dL AST 33 (14-36) U/L ALT 32 (6-35) U/L Alkaline Phosphatase 80 (38-126) U/L Albumin 4.0 (3.5-5.1) g/dL Assessment and Plan Assessment and plan (1) Cellulitis of left thigh: Code(s): L03.116 - Cellulitis of left lower limb Status: Acute Assessment and Plan: * Monitor vital signs, I&Os, neuro status and patient is a fall risk * Monitor serum electrolytes, CBC, cultures, WBC and temp curve * Consult pharmacy for vancomycin dosing, Vancomycin 1 gram IV q12H, obtain trough level prior to the 4th dose * Gentle IV fluids resuscitation * No leukocytosis * Cellulitis demarcated with blue marker on Tuesday - erythema and swelling appears to be receding /improving * Continue vancomycin * General surgery consult * Add on Ceftriaxone * Cellulitis seems to be well controlled, no surgical intervention indicated at this time (2) Spider bite, venomous: Code(s): T63.301A - Toxic effect of unspecified spider venom, accidental (unintentional), initial encounter Status: Acute Assessment and Plan: * See above Quality VTE Prophylaxis VTE prophylaxis: mechanical ordered
[2025-03-10 08:25] LABS: Basophils Percent Auto 0.2 % (0.2-1.2); Eosinophils Absolute Auto 0.2 K/mm3 (0-0.3); Eosinophils Percent Auto 3.4 % (0-4.4); Hematocrit 36.5 % (37.0-47.0); Hemoglobin 11.9 g/dL (12.0-15.0); Immature Granulocyte Absolute 0.02 K/mm3 (0.00-0.031); Immature Granulocyte Percent A 0.3 % (0-0.5); Lymphocytes Absolute Auto 1.64 K/mm3 (0.9-3.2); Lymphocytes Percent Auto 26.8 % (18.3-44.2); Mean Corpuscular HGB Conc 32.6 g/dl (32-36); Mean Corpuscular Hemoglobin 29.7 pg (26-34); Mean Platelet Volume 9.6 fl (7.4-10.4); Monocytes Absolute Auto 0.5 K/mm3 (0.1-0.6); Monocytes Percent Auto 7.7 % (2.6-8.5); Neutrophils Absolute Auto 3.8 K/mm3 (1.3-6.7); Neutrophils Percent Auto 61.6 % (45.5-73.1); Platelet Count Result 285 k/mm3 (150-375); Red Blood Count 4.01 M/mm3 (4.2-5.4); Red Cell Distribution Width 13.2 % (11.5-14.5); White Blood Count 6.1 K/mm3 (4.5-10.0)
[2025-03-10 08:38] LABS: Alanine Aminotransferase 31 U/L (6-35); Albumin Level 3.7 g/dL (3.5-5.1); Alkaline Phosphatase 59 U/L (38-126); Anion Gap 8 mmol/L (4-12); Aspartate Amino Transferase 32 U/L (14-36); Bilirubin,Total 0.6 mg/dL (0.2-1.3); Blood Urea Nitrogen 6 mg/dL (7-17); Carbon Dioxide 25 mmol/L (22-30); Chloride 106 mmol/L (98-107); Estimated CRCL calculation 105 ml/min; Estimated Glomerular Filt Rate > 60; Glucose 83 mg/dL (65-110); Potassium 3.7 mmol/L (3.4-5.0); Sodium 139 mmol/L (137-145); Total Protein 6.7 g/dL (6.3-8.2)
[2025-03-10] MEDS: diphenhydrAMINE HCl CAP 25 MG CAPSULE PO ×2 (09:21→21:16)
[2025-03-10] MEDS: VANCOMYCIN 1,500 MG/NS 500 ML 1,500 MG/500 ML BAG 250 MG IVPB (09:38)
--- NOTE | 2025-03-10 11:30 | PHAR ---
Home Meds Verified: Xulane patch Apply 1 patch to skin every week for 3 weeks then take 1 week off Ubrelvy 100mg Take 1 tablet PO 1 time PRN Migraine headache. May repeat 1 time after 2 hours for 1 dose if needed
[2025-03-10] MEDS: [UNRECOGNIZED DRUG - REMARK] 1 EACH EXTERNAL (12:03)
[2025-03-10] MEDS: UBROGEPANT 100 MG 1 EACH PO (12:04)
--- NOTE | 2025-03-10 12:25 | P.CONS_ITS ---
Assessment and Plan Assessment and plan (1) Spider bite, venomous: Code(s): T63.301A - Toxic effect of unspecified spider venom, accidental (unintentional), initial encounter Status: Acute Assessment and Plan: Appears the patient has suffered a brown recluse spider bite to the left upper medial thigh. At this time there is no necrosis of the tissue although there is some mild cellulitic changes and a small blister in the area. Will need to monitor the area for developing areas of necrosis due to the spider bite which can happen a delayed fashion. She is on vancomycin for IV antibiotics to treat cellulitis I am going to add Rocephin as well. At this time will continue monitoring the area as there is no abscess or necrotic tissue that needs to be surgically drained or debrided. (2) Cellulitis of left thigh: Code(s): L03.116 - Cellulitis of left lower limb Status: Acute Assessment and Plan: Mild cellulitis of the left upper medial thigh. This is due to a spider bite. Cellulitis seems to be fairly controlled at this point. Continue vancomycin. Will add Rocephin. HPI Data of Consult Date/Time: 03/10/25 12:25 Requesting Physician: Anne-Marie Thomas DO Primary Care Provider: Shae Ruiz APRN Consult Narrative Reason for consult: Upper medial thigh cellulitis secondary to spider bite Narrative: Domonique Santos is a 44 year old female who initially went to urgent care facility after sustaining a spider bite to the upper medial left thigh. The spider was killed and on my review of the picture it does appear to be a brown recluse spider. The patient was then sent from urgent care to [facility] Emergency Room due to discoloration of the skin around the original bite and concern for necrotic tissue. She was admitted to the hospital started on vancomycin for IV antibiotics. The patient has soreness in the area but is able walk. She states that the redness around the area has improved since yesterday. White blood cell count is normal. No fever or tachycardia. Patient is not a diabetic and is not immunocompromised. Review of Systems 2 Review of Systems: The remainder of the review of systems to include constitutional, HEENT, cardiovascular, respiratory, GI, , integumentary, musculoskeletal, endocrine, immunologic, hematologic, psychiatric, and neurologic are all negative except for which is mentioned above in the HPI. [facility] Past Medical History Medical History Low serum vitamin D Headache, migraine Family History Family History Mother COPD (chronic obstructive pulmonary disease) Rheumatoid aortitis Father Cancer of kidney Grandparent Heart attack Emphysema, unspecified Sibling Migraine Social History Social History Smoking status: Never smoker Alcohol intake: never Substance use: never Substance use type: does not use Do You Feel Safe in your Home?: Yes Lack of Transportation: No Lack of Food: Never True Current Housing: I Have Housing Concerned About Future Housing: No Difficulty Paying Gas/Electric Bills: No Difficulty Paying for Meds: No Currently Unemployed: No Education: Associate Degree Difficulty w/ Childcare or Family Care: No Living arrangements: with family Gender identity (if verbalized by the patient): Female Spiritual care concerns: No Meds Home Medications and Allergies Home Medications ?Medication ?Instructions ?Recorded ?Confirmed ?Type ubrogepant 100 mg tablet (Ubrelvy) See Rx Instructions .Route 03/04/25 03/10/25 Rx .COMPLEX #8 tabs fluoxetine 20 mg capsule 20 mg PO QPM 03/10/25 03/10/25 History norelgestromin 150 mcg-e.estradiol 1 patch transdermal .[id number] 03/10/25 03/10/25 History 35 mcg/24 hr weekly transderm patch (Xulane) Allergies Allergy/AdvReac Type Severity Reaction Status Date / Time codeine Allergy Mild Dizziness Verified 03/09/25 19:05 morphine AdvReac Intermediate Unconscious Verified 03/09/25 19:05 Vital Signs Vital Signs - 24 hr 03/09/25 17:39 03/09/25 19:06 03/09/25 22:09 Temperature 36.6 C 36.8 C Pulse Rate 99 83 83 Respiratory Rate 18 16 18 Blood Pressure 152/86 H 132/77 128/79 Pulse Oximetry 100 100 99 Oxygen Delivery Room Air Room Air 03/09/25 23:29 03/10/25 00:23 03/10/25 00:23 Temperature Pulse Rate 81 69 82 Respiratory Rate 17 17 17 Blood Pressure 121/77 107/67 107/67 Pulse Oximetry 99 99 98 Oxygen Delivery 03/10/25 01:16 03/10/25 02:06 03/10/25 06:00 Temperature 36.6 C 36.6 C Pulse Rate 90 90 72 Respiratory Rate 18 18 18 Blood Pressure 130/76 117/71 Pulse Oximetry 100 100 100 Oxygen Delivery Room Air 03/10/25 09:21 Temperature Pulse Rate Respiratory Rate 18 Blood Pressure Pulse Oximetry 100 Oxygen Delivery Room Air Exam 2 Const: General: comfortable and no acute distress HENMT: Ears: TM's normal bilaterally Face/Nose/Sinus: Normal nares present Mouth: Yes moist mucous membranes Eyes: General: appearance normal, both eyes and all related structures S clera: sclerae normal Pupils: Equal, round and reactive pupils present E OM: EOMs intact bilaterally Neck: Neck: supple and no JVD Resp: Effort & Inspection: normal respiratory effort Auscultation: clear to auscultation bilaterally Cardio: Rate: regular rate Rhythm: regular rhythm GI: GI Palp: Yes Soft to palpation, No Firmness to palpation present (GI), No Tenderness to palpation present (GI), No Guarding due to palpation present (GI) and No Hernia present Skin: Other: On the upper medial left thigh region there is a 3x3cm area of discoloration the skin with some mild erythema and minimal induration. There is no fluctuance. There is a 1cm unruptured blister filled with serous fluid. Neurologically intact in the right lower extremity. Neuro: General: gait normal Speech: normal speech Motor exam (neuro): 5 /5 motor strength present throughout Sensory Exam: normal sensation Extrem: General: normal exam except as noted Psych: Mental Status: mental status grossly normal Affect: normal affect Results Labs 03/10/25 07:49 03/10/25 07:49 Labs: Short CBC 03/09/25 03/10/25 Range/Units 19:12 07:49 WBC 6.6 6.1 (4.5-10.0) K/mm3 Hgb 12.3 11.9 L (12.0-15.0) g/dL Hct 36.7 L 36.5 L (37.0-47.0) % Plt Count 307 285 (150-375) k/mm3 [facility] 03/09/25 03/10/25 19:12 07:49 Sodium 139 139 Potassium 3.7 3.7 Chloride 107 106 Carbon Dioxide 24 25 BUN 11 6 L D Creatinine 0.55 L 0.56 L Glucose 97 83 Calcium 9.1 9.0 Liver Function 03/09/25 03/10/25 Range/Units 19:12 07:49 Total Bilirubin 0.3 0.6 (0.2-1.3) mg/dL AST 33 32 (14-36) U/L ALT 32 31 (6-35) U/L Alkaline Phosphatase 80 59 (38-126) U/L Albumin 4.0 3.7 (3.5-5.1) g/dL
[2025-03-10] MEDS: cefTRIAXone 2 GM/NS 100 ML 2 GM/100 ML BAG IVPB (12:52)
[2025-03-10] MEDS: FLUoxetine HCL 20 MG CAPSULE PO (17:07)
[2025-03-10] MEDS: VANCOMYCIN 1,500 MG/NS 500 ML 1,500 MG/500 ML BAG 125 MG IVPB (21:50)
[2025-03-11] MEDS: KETOROLAC 30 MG/ML VIAL (*BKC) IV PUSH ×3 (00:45→21:09)
--- NOTE | 2025-03-11 00:50 | PC.NURSE ---
Patient requested pain medicine and a fresh ice pack for her site. Visually inspected site. Site marked. Redness has extended posteriorly approximately 4.
[2025-03-11 06:00] VITALS: BP 129/82; PULSE 77; RESP 18; TEMP 36.4; O2SAT 98
--- NOTE | 2025-03-11 07:02 | P.PNIM_ITS ---
Progress Note: A&P Assessment and Plan (1) Cellulitis of left thigh: Code(s): L03.116 - Cellulitis of left lower limb Status: Acute Assessment and Plan: * Monitor vital signs, I&Os, neuro status and patient is a fall risk * Monitor serum electrolytes, CBC, cultures, WBC and temp curve * Consult pharmacy for vancomycin dosing, Vancomycin 1 gram IV q12H, obtain trough level prior to the 4th dose * Gentle IV fluids resuscitation * No leukocytosis * Cellulitis demarcated with blue marker on Tuesday - erythema and swelling appears to be receding /improving * Continue vancomycin * General surgery consult * Add on Ceftriaxone * Cellulitis seems to be well controlled, no surgical intervention indicated at this time * Surrounding tissue remains largely unchanged * Discontinue vancomycin, add doxycycline, continue ceftriaxone (2) Spider bite, venomous: Code(s): T63.301A - Toxic effect of unspecified spider venom, accidental (unintentional), initial encounter Status: Acute Assessment and Plan: * See above Subjective Date/time seen: 03/11/25 07:02 Interval history: 44-year-old female with a past medical history of low serum vitamin-D and headaches presents with swelling and erythema to the medial upper left thigh after a spider bite which occurred on Tuesday of this week. 03/11/2025 Patient sitting comfortably in bed at time of examination. Patient denies any chest pain, shortness a breath, facial swelling at this time. States that the erythema/pain is unchanged since yesterday. Upon exam, erythema does not appear to be unchanged, surrounding tissue still operator helper to palpation. Will discuss with ID pharmacist regarding his discharging vancomycin, continuing Rocephin and adding on doxycycline. Review of Systems Review of Systems: All systems reviewed & are unremarkable except as noted in HPI and below Exam Narrative: Gen - well appearing female in no acute respiratory distress who is nontoxic- appearing lying semi recumbent in bed HEENT - normocephalic. Atraumatic. Pupils equal round and reactive. Extraocular motions intact. Sclera clear and anicteric. Nares patent. Oropharynx was clear. No oral lesions. Moist mucous membranes. Neck - neck was supple. No dominant adenopathy, thyromegaly or masses. Chest - lungs are clear to auscultation bilaterally. No wheezes or crackles. Breast exam was deferred. CV - heart was regular rate and rhythm. S1-S2. No murmurs gallops or rubs. Abd - abdomen was soft. Nontender. Nondistended. Positive bowel sounds. No organomegaly or masses. Ext - no clubbing, cyanosis or edema. 2+ DP pulses bilaterally. Neuro - patient is alert and oriented x4. Strength is 5/5 in both upper and lower extremities. Cranial nerves 2-12 are intact. Speech is clear. Psych - normal mood and affect. Patient is pleasant and cooperative. Skin -medial upper left thigh has a 3 x 3 cm area of induration/erythema without fluctuance. 1 cm unrestricted blister with serous fluid. Borders of erythema demarcated with marker, cellulitis seems to be improving/receiving since lines were drawn. Warm and dry. No rashes noted. Objective Data Vital Signs Vital Signs: Vital Signs - 24 hr 03/10/25 09:21 03/10/25 14:00 03/10/25 20:00 Temperature 98.8 F Pulse Rate 74 83 Respiratory Rate 18 16 18 Blood Pressure 127/81 Pulse Oximetry 100 100 99 Oxygen Delivery Room Air Room Air 03/10/25 22:00 03/11/25 06:00 Temperature 97.8 F 97.5 F L Pulse Rate 83 77 Respiratory Rate 18 18 Blood Pressure 135/67 129/82 Pulse Oximetry 99 98 Oxygen Delivery Intake/Output Intake/Output: Intake & Output 03/08/25 03/09/25 03/10/25 03/11/25 23:59 23:59 23:59 23:59 Intake Total 500 2630 500 Balance 500 2630 500 Meds/Results Medications: Active Medications Generic Name Dose Route Start Last Admin Trade Name Freq PRN Reason Stop Dose Admin Acetaminophen 650 mg 03/10/25 01:35 Acetaminophen 325 Mg Tablet PO Q4H PRN Mild Pain (1-3) or Fever Calcium Carbonate 200 mg 03/10/25 01:35 Calcium Carbonate (Tums) 500 Mg (200 Mg Elemental) PO Q6H PRN Indigestion Diphenhydramine HCl 25 mg 03/10/25 07:32 03/10/25 21:16 Diphenhydramine Hcl Cap 25 Mg Capsule PO 25 mg Q6H PRN Administration Itching Fluoxetine HCl 20 mg 03/10/25 18:00 03/10/25 17:07 Fluoxetine Hcl 20 Mg Capsule PO 20 mg QPM TAL Administration Hydromorphone HCl 0.5 mg 03/10/25 01:35 Hydromorphone Hcl Inj (*Crx) 2 Mg/Ml Vial IV PUSH Q3H PRN Breakthrough Pain Vancomycin HCl 1,500 mg in 500 mls @ 250 mls/hr 03/09/25 21:00 03/11/25 01:50 Vancomycin 1,500 Mg/Ns 500 Ml IVPB Infused Q12H TAL Infusion Ceftriaxone Sodium 2 gm in 100 mls @ 200 mls/hr 03/10/25 12:35 03/10/25 13:22 Rocephin 2 Gm/Ns 100 Ml IVPB Infused QAM TAL Infusion Ketorolac Tromethamine 30 mg 03/10/25 01:35 03/11/25 00:45 Ketorolac 30 Mg/Ml Vial (*Bkc) IV PUSH 30 mg Q6H PRN Administration Pain Rated 4-10 Ubrelvy 100mg (Home 1 each 03/10/25 11:23 03/10/25 12:04 Med) Take 1 Tab Po PO 04/09/25 11:22 1 each Prn For Migraine. PRN PRN Administration May Repeat 1 Time Migraine After 2hr Xulane Patch (Home 1 each 03/10/25 09:00 03/10/25 12:03 Med) Apply 1 Patch EXTERNAL 03/24/25 09:01 1 each To Skin Every Tuesday WEEKLY TAL Administration For 3 Weeks, Then 1 Week Off Ondansetron HCl 4 mg 03/10/25 01:35 Ondansetron Inj 4 Mg/2 Ml Vial IV PUSH Q4H PRN Nausea And Vomiting Radiology Results: ITS Impressions Lower Extremity CT 03/09/25 21:33 IMPRESSION: No definite bone abnormality seen. Highly suggestive cellulitis seen anteriorly in the upper thigh and posteriorly and medially in the lower thigh. Labs Labs: Laboratory Results - last 24 hr 03/10/25 07:49 WBC 6.1 RBC 4.01 L Hgb 11.9 L Hct 36.5 L MCV 91.0 MCH 29.7 MCHC 32.6 RDW 13.2 Plt Count 285 MPV 9.6 Immature Gran % (Auto) 0.3 Neut % (Auto) 61.6 Lymph % (Auto) 26.8 [place] % (Auto) 7.7 Eos % (Auto) 3.4 Baso % (Auto) 0.2 Lymph # (Auto) 1.64 [place] # (Auto) 0.5 Eos # (Auto) 0.2 Baso # (Auto) 0.0 Abs Immat Gran (auto) 0.02 Absolute Neuts (auto) 3.8 Absolute Nucleated RBC 0.000 Nucleated RBC % 0.0 Sodium 139 Potassium 3.7 Chloride 106 Carbon Dioxide 25 Anion Gap 8 BUN 6 L D Creatinine 0.56 L Estim Creat Clear Calc 105 Estimated GFR > 60 Glucose 83 Calcium 9.0 Total Bilirubin 0.6 AST 32 ALT 31 Alkaline Phosphatase 59 Total Protein 6.7 Albumin 3.7 Quality VTE Prophylaxis VTE prophylaxis: mechanical ordered
[2025-03-11] MEDS: cefTRIAXone 2 GM/NS 100 ML 2 GM/100 ML BAG IVPB (08:10)
[2025-03-11] MEDS: diphenhydrAMINE HCl CAP 25 MG CAPSULE PO (08:11)
[2025-03-11 08:12] VITALS: RESP 18; O2SAT 98
[2025-03-11] MEDS: UBROGEPANT 100 MG 1 EACH PO (08:12)
[2025-03-11 08:13] LABS: Basophils Percent Auto 0.3 % (0.2-1.2); Eosinophils Absolute Auto 0.2 K/mm3 (0-0.3); Hemoglobin 12.6 g/dL (12.0-15.0); Immature Granulocyte Absolute 0.02 K/mm3 (0.00-0.031); Immature Granulocyte Percent A 0.3 % (0-0.5); Lymphocytes Absolute Auto 1.56 K/mm3 (0.9-3.2); Lymphocytes Percent Auto 27.1 % (18.3-44.2); Mean Corpuscular HGB Conc 33.2 g/dl (32-36); Mean Corpuscular Hemoglobin 29.8 pg (26-34); Mean Corpuscular Volume 89.8 fl (80-100); Monocytes Absolute Auto 0.4 K/mm3 (0.1-0.6); Monocytes Percent Auto 6.1 % (2.6-8.5); Neutrophils Absolute Auto 3.6 K/mm3 (1.3-6.7); Neutrophils Percent Auto 63.2 % (45.5-73.1); Platelet Count Result 299 k/mm3 (150-375); Red Blood Count 4.23 M/mm3 (4.2-5.4); Red Cell Distribution Width 13.1 % (11.5-14.5); White Blood Count 5.8 K/mm3 (4.5-10.0)
[2025-03-11 08:51] LABS: Alanine Aminotransferase 41 U/L (6-35); Albumin Level 3.9 g/dL (3.5-5.1); Alkaline Phosphatase 60 U/L (38-126); Anion Gap 9 mmol/L (4-12); Aspartate Amino Transferase 38 U/L (14-36); Bilirubin,Total 0.4 mg/dL (0.2-1.3); Blood Urea Nitrogen 8 mg/dL (7-17); Calcium 9.1 mg/dL (8.4-10.2); Carbon Dioxide 24 mmol/L (22-30); Chloride 106 mmol/L (98-107); Estimated CRCL calculation 105 ml/min; Estimated Glomerular Filt Rate > 60; Glucose 86 mg/dL (65-110); Potassium 3.8 mmol/L (3.4-5.0); Sodium 139 mmol/L (137-145); Total Protein 7.2 g/dL (6.3-8.2)
[2025-03-11 09:28] LABS: Vancomycin Trough 11.2 ug/mL (10.0-20.0)
--- NOTE | 2025-03-11 13:48 | P.PNGS_ITS ---
Progress Note: A&P Assessment and Plan (1) Spider bite, venomous: Code(s): T63.301A - Toxic effect of unspecified spider venom, accidental (unintentional), initial encounter Status: Acute Assessment and Plan: Appears the patient has suffered a brown recluse spider bite to the left upper medial thigh. At this time there is no necrosis of the tissue although there is some mild cellulitic changes and a small blister in the area. Will Continue to monitor the area for developing areas of necrosis, as effects can often be delayed. She was switched from vancomycin to doxycycline. Continue Rocephin. At this time will continue monitoring the area as there is no abscess or necrotic tissue that needs to be surgically drained or debrided. (2) Cellulitis of left thigh: Code(s): L03.116 - Cellulitis of left lower limb Status: Acute Assessment and Plan: Mild cellulitis of the left upper medial thigh. This is due to a spider bite. Cellulitis seems to be fairly controlled at this point. Continue doxycycline and Rocephin. Subjective Subjective Date/Time Seen: 03/11/25 13:48 Patient reports: feels better, still having pain and tolerating a regular diet Interval history: Patient is feeling better today, however she notes that she is still having pain to her left medial thigh where the bite was. No acute events overnight. VSS. WBC remains normal. Afebrile. No N/V. No urinary changes aside from odd odor that patient reports. Vancomycin discontinued and substituted with PO doxycycline. Exam Skin: Other: On the upper medial left thigh region there is a 3x3cm area of discoloration the skin with some mild erythema and minimal induration. Tenderness to palpation, especially to more distal aspect of the area. According to skin markings, area of surrounding redness may have traveled distally. There is no fluctuance. There is a 1cm unruptured flaccid blister with a fragile roof, filled with serous fluid. Objective Data Vital Signs Vital Signs: Vital Signs - 24 hr 03/10/25 14:00 03/10/25 20:00 03/10/25 22:00 Temperature 98.8 F 97.8 F Pulse Rate 74 83 83 Respiratory Rate 16 18 18 Blood Pressure 127/81 135/67 Pulse Oximetry 100 99 99 Oxygen Delivery Room Air 03/11/25 06:00 03/11/25 08:12 Temperature 97.5 F L Pulse Rate 77 Respiratory Rate 18 18 Blood Pressure 129/82 Pulse Oximetry 98 98 Oxygen Delivery Room Air Intake/Output Intake/Output: Intake & Output 03/08/25 03/09/25 03/10/25 03/11/25 23:59 23:59 23:59 23:59 Intake Total 500 2630 1080 Balance 500 2630 1080 Meds/Results Medications: Active Medications Generic Name Dose Route Start Last Admin Trade Name Freq PRN Reason Stop Dose Admin Acetaminophen 650 mg 03/10/25 01:35 Acetaminophen 325 Mg Tablet PO Q4H PRN Mild Pain (1-3) or Fever Calcium Carbonate 200 mg 03/10/25 01:35 Calcium Carbonate (Tums) 500 Mg (200 Mg Elemental) PO Q6H PRN Indigestion Diphenhydramine HCl 25 mg 03/10/25 07:32 03/11/25 08:11 Diphenhydramine Hcl Cap 25 Mg Capsule PO 25 mg Q6H PRN Administration Itching Doxycycline Hyclate 100 mg 03/11/25 21:00 Doxycycline Hyclate 100 Mg Tablet PO Q12HR TAL Fluoxetine HCl 20 mg 03/10/25 18:00 03/10/25 17:07 Fluoxetine Hcl 20 Mg Capsule PO 20 mg QPM TAL Administration Hydromorphone HCl 0.5 mg 03/10/25 01:35 Hydromorphone Hcl Inj (*Crx) 2 Mg/Ml Vial IV PUSH Q3H PRN Breakthrough Pain Ceftriaxone Sodium 2 gm in 100 mls @ 200 mls/hr 03/10/25 12:35 03/11/25 08:40 Rocephin 2 Gm/Ns 100 Ml IVPB Infused QAM TAL Infusion Ketorolac Tromethamine 30 mg 03/10/25 01:35 03/11/25 08:11 Ketorolac 30 Mg/Ml Vial (*Bkc) IV PUSH 30 mg Q6H PRN Administration Pain Rated 4-10 Ubrelvy 100mg (Home 1 each 03/10/25 11:23 03/11/25 08:12 Med) Take 1 Tab Po PO 04/09/25 11:22 1 each Prn For Migraine. PRN PRN Administration May Repeat 1 Time Migraine After 2hr Xulane Patch (Home 1 each 03/10/25 09:00 03/10/25 12:03 Med) Apply 1 Patch EXTERNAL 03/24/25 09:01 1 each To Skin Every Tuesday WEEKLY TAL Administration For 3 Weeks, Then 1 Week Off Ondansetron HCl 4 mg 03/10/25 01:35 Ondansetron Inj 4 Mg/2 Ml Vial IV PUSH Q4H PRN Nausea And Vomiting Radiology Results: ITS Impressions Lower Extremity CT 03/09/25 21:33 IMPRESSION: No definite bone abnormality seen. Highly suggestive cellulitis seen anteriorly in the upper thigh and posteriorly and medially in the lower thigh. Labs Labs: Laboratory Results - last 24 hr 03/11/25 08:05 WBC 5.8 RBC 4.23 Hgb 12.6 Hct 38.0 MCV 89.8 MCH 29.8 MCHC 33.2 RDW 13.1 Plt Count 299 MPV 9.0 Immature Gran % (Auto) 0.3 Neut % (Auto) 63.2 Lymph % (Auto) 27.1 [place] % (Auto) 6.1 Eos % (Auto) 3.0 Baso % (Auto) 0.3 Lymph # (Auto) 1.56 [place] # (Auto) 0.4 Eos # (Auto) 0.2 Baso # (Auto) 0.0 Abs Immat Gran (auto) 0.02 Absolute Neuts (auto) 3.6 Absolute Nucleated RBC 0.000 Nucleated RBC % 0.0 Sodium 139 Potassium 3.8 Chloride 106 Carbon Dioxide 24 Anion Gap 9 BUN 8 Creatinine 0.56 L Estim Creat Clear Calc 105 Estimated GFR > 60 Glucose 86 Calcium 9.1 Total Bilirubin 0.4 AST 38 H ALT 41 H Alkaline Phosphatase 60 Total Protein 7.2 Albumin 3.9 Vancomycin Trough 11.2
[2025-03-11 14:00] VITALS: BP 125/81; PULSE 76; RESP 17; TEMP 36.5; O2SAT 100
[2025-03-11] MEDS: FLUoxetine HCL 20 MG CAPSULE PO (17:16)
[2025-03-11 20:00] VITALS: PULSE 75; RESP 18; O2SAT 100
[2025-03-11] MEDS: DOXYCYCLINE HYCLATE 100 MG TABLET PO (21:09)
[2025-03-11 22:00] VITALS: BP 142/87; PULSE 75; RESP 18; TEMP 36.7; O2SAT 100
[2025-03-12] MEDS: UBROGEPANT 100 MG 1 EACH PO (04:03)
[2025-03-12 05:29] LABS: Basophils Percent Auto 0.6 % (0.2-1.2); Eosinophils Absolute Auto 0.2 K/mm3 (0-0.3); Eosinophils Percent Auto 2.8 % (0-4.4); Hematocrit 36.8 % (37.0-47.0); Immature Granulocyte Absolute 0.02 K/mm3 (0.00-0.031); Immature Granulocyte Percent A 0.4 % (0-0.5); Lymphocytes Absolute Auto 2.16 K/mm3 (0.9-3.2); Lymphocytes Percent Auto 39.9 % (18.3-44.2); Mean Corpuscular HGB Conc 32.6 g/dl (32-36); Mean Corpuscular Hemoglobin 29.5 pg (26-34); Mean Corpuscular Volume 90.4 fl (80-100); Mean Platelet Volume 9.4 fl (7.4-10.4); Monocytes Absolute Auto 0.4 K/mm3 (0.1-0.6); Monocytes Percent Auto 7.4 % (2.6-8.5); Neutrophils Absolute Auto 2.7 K/mm3 (1.3-6.7); Neutrophils Percent Auto 48.9 % (45.5-73.1); Platelet Count Result 309 k/mm3 (150-375); Red Blood Count 4.07 M/mm3 (4.2-5.4); Red Cell Distribution Width 12.7 % (11.5-14.5); White Blood Count 5.4 K/mm3 (4.5-10.0)
[2025-03-12 05:55] LABS: Alanine Aminotransferase 39 U/L (6-35); Albumin Level 3.9 g/dL (3.5-5.1); Alkaline Phosphatase 61 U/L (38-126); Anion Gap 9 mmol/L (4-12); Aspartate Amino Transferase 31 U/L (14-36); Bilirubin,Total 0.4 mg/dL (0.2-1.3); Blood Urea Nitrogen 10 mg/dL (7-17); Calcium 9.1 mg/dL (8.4-10.2); Carbon Dioxide 24 mmol/L (22-30); Chloride 104 mmol/L (98-107); Estimated CRCL calculation 110 ml/min; Estimated Glomerular Filt Rate > 60; Glucose 81 mg/dL (65-110); Potassium 3.6 mmol/L (3.4-5.0); Sodium 137 mmol/L (137-145); Total Protein 6.8 g/dL (6.3-8.2)
[2025-03-12 06:00] VITALS: BP 128/81; PULSE 75; RESP 18; TEMP 36.3; O2SAT 99
--- NOTE | 2025-03-12 07:22 | P.PNIM_ITS ---
Progress Note: A&P Assessment and Plan (1) Cellulitis of left thigh: Code(s): L03.116 - Cellulitis of left lower limb Status: Acute Assessment and Plan: * Monitor vital signs, I&Os, neuro status and patient is a fall risk * Monitor serum electrolytes, CBC, cultures, WBC and temp curve * Consult pharmacy for vancomycin dosing, Vancomycin 1 gram IV q12H, obtain trough level prior to the 4th dose * Gentle IV fluids resuscitation * No leukocytosis * Cellulitis demarcated with blue marker on Tuesday - erythema and swelling appears to be receding /improving * Continue vancomycin * General surgery consult * Add on Ceftriaxone * Cellulitis seems to be well controlled, no surgical intervention indicated at this time * Surrounding tissue remains largely unchanged * Discontinue vancomycin, continue ceftriaxone and Septra DS (2) Spider bite, venomous: Code(s): T63.301A - Toxic effect of unspecified spider venom, accidental (unintentional), initial encounter Status: Acute Assessment and Plan: * See above Subjective Date/time seen: 03/12/25 07:22 Interval history: 44-year-old female with a past medical history of low serum vitamin-D and hea daches presents with swelling and erythema to the medial upper left thigh after a spider bite which occurred on Tuesday of this week. 03/12/2025 Patient sitting comfortably in bed at time of examination. Patient states that she feels much better today. She is able to ambulate and shower without any assistance or pain. Surgery okay with discharging patient tomorrow on Bactrim DS 1 tab q.12 hours x7 days with close outpatient follow-up with their office. Patient otherwise has no complaints or concerns. Review of Systems Review of Systems: All systems reviewed & are unremarkable except as noted in HPI and below Exam Narrative: Gen - well appearing female in no acute respiratory distress who is nontoxic- appearing lying semi recumbent in bed HEENT - normocephalic. Atraumatic. Pupils equal round and reactive. Extraocular motions intact. Sclera clear and anicteric. Nares patent. Oropharynx was clear. No oral lesions. Moist mucous membranes. Neck - neck was supple. No dominant adenopathy, thyromegaly or masses. Chest - lungs are clear to auscultation bilaterally. No wheezes or crackles. Breast exam was deferred. CV - heart was regular rate and rhythm. S1-S2. No murmurs gallops or rubs. Abd - abdomen was soft. Nontender. Nondistended. Positive bowel sounds. No organomegaly or masses. Ext - no clubbing, cyanosis or edema. 2+ DP pulses bilaterally. Neuro - patient is alert and oriented x4. Strength is 5/5 in both upper and lower extremities. Cranial nerves 2-12 are intact. Speech is clear. Psych - normal mood and affect. Patient is pleasant and cooperative. Skin -medial upper left thigh has a 3 x 3 cm area of induration/erythema without fluctuance. 1 cm unrestricted blister with serous fluid. Borders of erythema demarcated with marker, cellulitis seems to be improving/receiving since lines were drawn. Warm and dry. No rashes noted. Objective Data Vital Signs Vital Signs: Vital Signs - 24 hr 03/11/25 08:12 03/11/25 14:00 03/11/25 20:00 Temperature 97.7 F Pulse Rate 76 75 Respiratory Rate 18 17 18 Blood Pressure 125/81 Pulse Oximetry 98 100 100 Oxygen Delivery Room Air Room Air 03/11/25 22:00 03/12/25 06:00 Temperature 98.1 F 97.3 F L Pulse Rate 75 75 Respiratory Rate 18 18 Blood Pressure 142/87 H 128/81 Pulse Oximetry 100 99 Oxygen Delivery Intake/Output Intake/Output: Intake & Output 03/09/25 03/10/25 03/11/25 03/12/25 23:59 23:59 23:59 23:59 Intake Total 500 2630 1560 Balance 500 2630 1560 Meds/Results Medications: Active Medications Generic Name Dose Route Start Last Admin Trade Name Freq PRN Reason Stop Dose Admin Acetaminophen 650 mg 03/10/25 01:35 Acetaminophen 325 Mg Tablet PO Q4H PRN Mild Pain (1-3) or Fever Calcium Carbonate 200 mg 03/10/25 01:35 Calcium Carbonate (Tums) 500 Mg (200 Mg Elemental) PO Q6H PRN Indigestion Diphenhydramine HCl 25 mg 03/10/25 07:32 03/11/25 08:11 Diphenhydramine Hcl Cap 25 Mg Capsule PO 25 mg Q6H PRN Administration Itching Doxycycline Hyclate 100 mg 03/11/25 21:00 03/11/25 21:09 Doxycycline Hyclate 100 Mg Tablet PO 100 mg Q12HR TAL Administration Fluoxetine HCl 20 mg 03/10/25 18:00 03/11/25 17:16 Fluoxetine Hcl 20 Mg Capsule PO 20 mg QPM TAL Administration Hydromorphone HCl 0.5 mg 03/10/25 01:35 Hydromorphone Hcl Inj (*Crx) 2 Mg/Ml Vial IV PUSH Q3H PRN Breakthrough Pain Ceftriaxone Sodium 2 gm in 100 mls @ 200 mls/hr 03/10/25 12:35 03/11/25 08:40 Rocephin 2 Gm/Ns 100 Ml IVPB Infused QAM TAL Infusion Ketorolac Tromethamine 30 mg 03/10/25 01:35 03/11/25 21:09 Ketorolac 30 Mg/Ml Vial (*Bkc) IV PUSH 30 mg Q6H PRN Administration Pain Rated 4-10 Ubrelvy 100mg (Home 1 each 03/10/25 11:23 03/12/25 04:03 Med) Take 1 Tab Po PO 04/09/25 11:22 1 each Prn For Migraine. PRN PRN Administration May Repeat 1 Time Migraine After 2hr Xulane Patch (Home 1 each 03/10/25 09:00 03/10/25 12:03 Med) Apply 1 Patch EXTERNAL 03/24/25 09:01 1 each To Skin Every Tuesday WEEKLY TAL Administration For 3 Weeks, Then 1 Week Off Ondansetron HCl 4 mg 03/10/25 01:35 Ondansetron Inj 4 Mg/2 Ml Vial IV PUSH Q4H PRN Nausea And Vomiting Radiology Results: ITS Impressions Lower Extremity CT 03/09/25 21:33 IMPRESSION: No definite bone abnormality seen. Highly suggestive cellulitis seen anteriorly in the upper thigh and posteriorly and medially in the lower thigh. Labs Labs: Laboratory Results - last 24 hr 03/11/25 03/12/25 08:05 05:04 WBC 5.8 5.4 RBC 4.23 4.07 L Hgb 12.6 12.0 Hct 38.0 36.8 L MCV 89.8 90.4 MCH 29.8 29.5 MCHC 33.2 32.6 RDW 13.1 12.7 Plt Count 299 309 MPV 9.0 9.4 Immature Gran % (Auto) 0.3 0.4 Neut % (Auto) 63.2 48.9 Lymph % (Auto) 27.1 39.9 [place] % (Auto) 6.1 7.4 Eos % (Auto) 3.0 2.8 Baso % (Auto) 0.3 0.6 Lymph # (Auto) 1.56 2.16 [place] # (Auto) 0.4 0.4 Eos # (Auto) 0.2 0.2 Baso # (Auto) 0.0 0.0 Abs Immat Gran (auto) 0.02 0.02 Absolute Neuts (auto) 3.6 2.7 Absolute Nucleated RBC 0.000 0.000 Nucleated RBC % 0.0 0.0 Sodium 139 137 Potassium 3.8 3.6 Chloride 106 104 Carbon Dioxide 24 24 Anion Gap 9 9 BUN 8 10 Creatinine 0.56 L 0.53 L Estim Creat Clear Calc 105 110 Estimated GFR > 60 > 60 Glucose 86 81 Calcium 9.1 9.1 Total Bilirubin 0.4 0.4 AST 38 H 31 ALT 41 H 39 H Alkaline Phosphatase 60 61 Total Protein 7.2 6.8 Albumin 3.9 3.9 Vancomycin Trough 11.2 Quality VTE Prophylaxis VTE prophylaxis: mechanical ordered
--- NOTE | 2025-03-12 08:54 | P.PNGS_ITS ---
Progress Note: A&P Assessment and Plan (1) Spider bite, venomous: Code(s): T63.301A - Toxic effect of unspecified spider venom, accidental (unintentional), initial encounter Status: Acute Assessment and Plan: Appears the patient has suffered a brown recluse spider bite to the left upper medial thigh. Central dusky tissue exquisitely tender and possibly not viable. Mild cellulitic changes and a small blister in the area. Will Continue to monitor the area for developing areas of necrosis, as effects can often be delayed. Continue Rocephin and doxycycline. Continue monitoring the area. Will consider surgical debridement after discussing with Dr. Anne. Currently on regular diet. (2) Cellulitis of left thigh: Code(s): L03.116 - Cellulitis of left lower limb Status: Acute Assessment and Plan: Mild cellulitis of the left upper medial thigh. This is due to a spider bite. Cellulitis seems to be fairly controlled at this point. Continue doxycycline and Rocephin. Subjective Subjective Date/Time Seen: 03/12/25 08:54 Patient reports: no new complaints and still having pain Interval history: Patient is feeling well today. She was able to ambulate around the room with less difficulty. No fever/chills. No myalgias. Mentioned calf spasm that resolved spontaneously this morning. No changes in bowel or bladder habits. WBC normal. Exam Skin: Other: On the upper medial left thigh region there is a 3x3 cm area of discoloration the skin with some mild erythema and minimal induration. Exquisitely tender to palpation in central areas with more discoloration. Area of surrounding redness has decreased significantly. There is no fluctuance. There is a 1 cm unruptured flaccid blister with a fragile roof, filled with serous fluid. Objective Data Vital Signs Vital Signs: Vital Signs - 24 hr 03/11/25 14:00 03/11/25 20:00 03/11/25 22:00 Temperature 97.7 F 98.1 F Pulse Rate 76 75 75 Respiratory Rate 17 18 18 Blood Pressure 125/81 142/87 H Pulse Oximetry 100 100 100 Oxygen Delivery Room Air 03/12/25 06:00 Temperature 97.3 F L Pulse Rate 75 Respiratory Rate 18 Blood Pressure 128/81 Pulse Oximetry 99 Oxygen Delivery Intake/Output Intake/Output: Intake & Output 06/21/25 03/10/25 03/11/25 03/12/25 23:59 23:59 23:59 23:59 Intake Total 500 2630 1560 Balance 500 2630 1560 Meds/Results Medications: Active Medications Generic Name Dose Route Start Last Admin Trade Name Freq PRN Reason Stop Dose Admin Acetaminophen 650 mg 03/10/25 01:35 Acetaminophen 325 Mg Tablet PO Q4H PRN Mild Pain (1-3) or Fever Calcium Carbonate 200 mg 03/10/25 01:35 Calcium Carbonate (Tums) 500 Mg (200 Mg Elemental) PO Q6H PRN Indigestion Diphenhydramine HCl 25 mg 03/10/25 07:32 03/11/25 08:11 Diphenhydramine Hcl Cap 25 Mg Capsule PO 25 mg Q6H PRN Administration Itching Doxycycline Hyclate 100 mg 03/11/25 21:00 03/11/25 21:09 Doxycycline Hyclate 100 Mg Tablet PO 100 mg Q12HR TAL Administration Fluoxetine HCl 20 mg 03/10/25 18:00 03/11/25 17:16 Fluoxetine Hcl 20 Mg Capsule PO 20 mg QPM TAL Administration Hydromorphone HCl 0.5 mg 03/10/25 01:35 Hydromorphone Hcl Inj (*Crx) 2 Mg/Ml Vial IV PUSH Q3H PRN Breakthrough Pain Ceftriaxone Sodium 2 gm in 100 mls @ 200 mls/hr 03/10/25 12:35 03/11/25 08:40 Rocephin 2 Gm/Ns 100 Ml IVPB Infused QAM TAL Infusion Ketorolac Tromethamine 30 mg 03/10/25 01:35 03/11/25 21:09 Ketorolac 30 Mg/Ml Vial (*Bkc) IV PUSH 30 mg Q6H PRN Administration Pain Rated 4-10 Ubrelvy 100mg (Home 1 each 03/10/25 11:23 03/12/25 04:03 Med) Take 1 Tab Po PO 04/09/25 11:22 1 each Prn For Migraine. PRN PRN Administration May Repeat 1 Time Migraine After 2hr Xulane Patch (Home 1 each 03/10/25 09:00 03/10/25 12:03 Med) Apply 1 Patch EXTERNAL 03/24/25 09:01 1 each To Skin Every Tuesday WEEKLY TAL Administration For 3 Weeks, Then 1 Week Off Ondansetron HCl 4 mg 03/10/25 01:35 Ondansetron Inj 4 Mg/2 Ml Vial IV PUSH Q4H PRN Nausea And Vomiting Radiology Results: ITS Impressions Lower Extremity CT 03/09/25 21:33 IMPRESSION: No definite bone abnormality seen. Highly suggestive cellulitis seen anteriorly in the upper thigh and posteriorly and medially in the lower thigh. Labs Labs: Laboratory Results - last 24 hr 03/11/25 03/12/25 08:05 05:04 WBC 5.4 RBC 4.07 L Hgb 12.0 Hct 36.8 L MCV 90.4 MCH 29.5 MCHC 32.6 RDW 12.7 Plt Count 309 MPV 9.4 Immature Gran % (Auto) 0.4 Neut % (Auto) 48.9 Lymph % (Auto) 39.9 [place] % (Auto) 7.4 Eos % (Auto) 2.8 Baso % (Auto) 0.6 Lymph # (Auto) 2.16 [place] # (Auto) 0.4 Eos # (Auto) 0.2 Baso # (Auto) 0.0 Abs Immat Gran (auto) 0.02 Absolute Neuts (auto) 2.7 Absolute Nucleated RBC 0.000 Nucleated RBC % 0.0 Sodium 137 Potassium 3.6 Chloride 104 Carbon Dioxide 24 Anion Gap 9 BUN 10 Creatinine 0.53 L Estim Creat Clear Calc 110 Estimated GFR > 60 Glucose 81 Calcium 9.1 Total Bilirubin 0.4 AST 31 ALT 39 H Alkaline Phosphatase 61 Total Protein 6.8 Albumin 3.9 Vancomycin Trough 11.2
[2025-03-12 08:55] VITALS: RESP 18; O2SAT 99
[2025-03-12] MEDS: DOXYCYCLINE HYCLATE 100 MG TABLET PO (08:55)
[2025-03-12] MEDS: cefTRIAXone 2 GM/NS 100 ML 2 GM/100 ML BAG IVPB (08:55)
[2025-03-12] MEDS: SULFAMETHOXAZOLE/TRIMETHOPRIM 800/160 MG DS TABLET 1 TAB PO (13:33)
[2025-03-12 14:00] VITALS: BP 131/81; PULSE 77; RESP 14; TEMP 36.4; O2SAT 100
--- NOTE | 2025-03-12 15:55 | P.DS_ITS ---
DS: Admitting Diagnosis Discharge Date 03/12/2025 Admitting Diagnosis Cellulitis DS: Discharge Diagnosis Discharge Diagnosis (1) Cellulitis of left thigh: Code(s): L03.116 - Cellulitis of left lower limb Status: Acute (2) Spider bite, venomous: Code(s): T63.301A - Toxic effect of unspecified spider venom, accidental (unintentional), initial encounter Status: Acute DS: Summary Hospital Course Reason for hospitalization: Spider bite - cellulitis Hospital Course: Domonique Santos is a 44-year-old female with a past medical history of low serum vitamin-D and headaches presents with swelling and erythema to the medial upper left thigh after a spider bite which occurred on Tuesday of this week. Patient reports that it could have been a brown recluse, she was able to get a picture of the spider after a was stepped on by her son and on examination of the picture, it does appear to be a brown recluse spider. She initially went to [facility] urgent care on Tuesday and was given a prescription for doxycycline. The wound did not improve over the next 2 days in on Tuesday she went back to the same urgent care and was told to continue the antibiotic. On Tuesday she started developing facial swelling along with worsening redness and swelling to the medial upper left thigh. Once seen in the ED, IV Vancomycin was initiated and patient states that knee swelling and pain seemed to have improved since then. Denies any difficulty with ambulation, numbness or tingling. Also denies any chest pain, shortness a breath, nausea/vomiting, headaches or dizziness. In ED: 97.9F, 81HR, 17 RR, 121/77, 99% on RA Lower extremity CT: No definite bone abnormality seen. Highly suggestive cellulitis seen anteriorly in the upper thigh and posteriorly and medially in the lower thigh. Blood cultures pending General surgery consulted for cellulitis of left lower limb. Continue to monitor or over hospitalization. Surgery initially decided not to pursue surgical interventions at this time. We continued to monitor until 624. She was placed on Rocephin and vancomycin, switched to Septra DS. Patient improved clinically throughout hospitalization, no leukocytosis, afebrile, or necrosis of wound. General surgery cleared patient for discharge with continued antibiotic coverage with Bactrim for 7 days. They instructed the patient to follow up with their office in 2 days. Patient is amenable to this plan. Status at Discharge Functional status at discharge: independent ambulation Overall status at discharge: patient is back to baseline Time Spent with Patient Time attestation: Total time spent providing and/or coordinating discharge services: 35 Exam Narrative: Gen - well appearing female in no acute respiratory distress who is nontoxic- appearing lying semi recumbent in bed HEENT - normocephalic. Atraumatic. Pupils equal round and reactive. Extraocular motions intact. Sclera clear and anicteric. Nares patent. Oropharynx was clear. No oral lesions. Moist mucous membranes. Neck - neck was supple. No dominant adenopathy, thyromegaly or masses. Chest - lungs are clear to auscultation bilaterally. No wheezes or crackles. Breast exam was deferred. CV - heart was regular rate and rhythm. S1-S2. No murmurs gallops or rubs. Abd - abdomen was soft. Nontender. Nondistended. Positive bowel sounds. No organomegaly or masses. Ext - no clubbing, cyanosis or edema. 2+ DP pulses bilaterally. Neuro - patient is alert and oriented x4. Strength is 5/5 in both upper and lower extremities. Cranial nerves 2-12 are intact. Speech is clear. Psych - normal mood and affect. Patient is pleasant and cooperative. Skin -medial upper left thigh has a 3 x 3 cm area of induration/erythema without fluctuance. 1 cm unrestricted blister with serous fluid. Borders of erythema demarcated with marker, cellulitis seems to be improving/receiving since lines were drawn. Warm and dry. No rashes noted. DS: Data Data Completed and Pending Labs on day of discharge: Labs from last 24 hours 03/12/25 05:04 WBC 5.4 RBC 4.07 L Hgb 12.0 Hct 36.8 L MCV 90.4 MCH 29.5 MCHC 32.6 RDW 12.7 Plt Count 309 MPV 9.4 Immature Gran % (Auto) 0.4 Neut % (Auto) 48.9 Lymph % (Auto) 39.9 [place] % (Auto) 7.4 Eos % (Auto) 2.8 Baso % (Auto) 0.6 Lymph # (Auto) 2.16 [place] # (Auto) 0.4 Eos # (Auto) 0.2 Baso # (Auto) 0.0 Abs Immat Gran (auto) 0.02 Absolute Neuts (auto) 2.7 Absolute Nucleated RBC 0.000 Nucleated RBC % 0.0 Sodium 137 Potassium 3.6 Chloride 104 Carbon Dioxide 24 Anion Gap 9 BUN 10 Creatinine 0.53 L Estim Creat Clear Calc 110 Estimated GFR > 60 Glucose 81 Calcium 9.1 Total Bilirubin 0.4 AST 31 ALT 39 H Alkaline Phosphatase 61 Total Protein 6.8 Albumin 3.9 Preliminary micro results at discharge 03/09/25 19:12 Blood Culture - Preliminary Blood 03/09/25 19:52 Blood Culture - Preliminary Blood Discharge Plan Discharge Attending physician on discharge: Gilmar Buck Consulting providers: Severo Blancas; Rd Anne Discharging Clinician: Severo Blancas Anticipated Discharge Date/Time: 03/12/25 15:52 Patient Disposition: Home Activity: january shower Diet: as tolerated Discharge Instructions: * Follow-up with Dr. Anne on 03/14/25. Our office will schedule the appointment and call you with the time. * supervisor water softener service your antibiotics and take as prescribed. Discharge disposition: Stable Take medications as prescribed. You will be prescribed Bactrim QS 1 tab q.12 hours x7 days Monitor blood pressures Take caution while standing, rising, or moving Change positions slowly taking a break between each position change If you standing feel dizzy sit back down and take a break Encouraged to continue with yearly vaccinations Return to the emergency department if he developed sudden shortness of breath, chest pain, nausea, vomiting, upset stomach or intractable diarrhea Return to the emergency department if you develop fever greater than 101.5 Follow-up with the primary care physician within 1-2 weeks Thank you for [facility] for your healthcare needs Patient Instructions: Antibiotic Form Patient Language: Belarusian Stand Alone Forms: General Discharge Information Follow-up/Referrals: Rd Anne MD [Physician] - 03/14/25 Discharge Medications: New sulfamethoxazole-trimethoprim 800-160 mg Tablet 1 tablet PO Q12HR 7 Days Qty: 14 1RF No Action norelgestromin-ethin.estradiol [Xulane] 150-35 mcg/24 hr patch weekly 1 patch transdermal .[id number] Rx Instructions: REPLACE EVERY 3 WEEKS ON SUNDAYS fluoxetine 20 mg capsule 20 mg PO QPM Ubrelvy 100 mg tablet See Rx Instructions .ROUTE .COMPLEX Qty: 8 3RF Dose Instruction: TAKE 1 TABLET BY MOUTH 1 TIME NEEDED FOR MIGRAINE HEADACHE. MAY REPEAT 1 TIME IN>= 2 HOURS AFTER FOR 1 DOSE NEEDED Rx Instructions: TAKE 1 TABLET BY MOUTH 1 TIME NEEDED FOR MIGRAINE HEADACHE. MAY REPEAT 1 TIME IN>= 2 HOURS AFTER FOR 1 DOSE NEEDED Date of admission: 03/12/25 10:38 Primary Care Provider: Shae Ruiz Admitting Provider: Anne-Marie Thomas Attending physician on admission: Anne-Marie Thomas Condition: Stable Quality VTE Prophylaxis VTE prophylaxis: mechanical ordered
== END 2025-03-12 16:55 | disposition home or self-care (01) ==
LOC: ANHED 03-10 00:05 → ANH2MED 03-10 06:47
PROVIDERS: Physician Assistant; Admitting Provider Internal Medicine; Emergency Provider Physician Assistant; PCP Nurse Practitioner Adult Health; Visit Provider Internal Medicine
DX: T63.301A Toxic effect of unspecified spider venom, accidental (unintentional), initial encounter (principal); L03.116 Cellulitis of left lower limb; E55.9 Vitamin D deficiency, unspecified; Z79.3 Long term (current) use of hormonal contraceptives; Z79.899 Other long term (current) drug therapy
CPT/HCPCS: 36415; 73701; 80053; 80202; 81025; 83605; 85025; 85652; 86140; 87040; 96365; 96366; 96367; 96374; 96375; 96376; 99285; A9270; G0378; J0696; J1200; J1885; J3370; Q9967